=== PATIENT | female | born 1980 | race Caucasian/White ===

== ENCOUNTER 2016-06-03 20:05 | Emergency (ER) | payer BC, OTHER ==
--- NOTE | 2016-06-03 20:19 | ERPHSYRPT ---
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 no current fevers and has been clean for years now per pt. Timing/Duration: today Activities at Onset: none Quality: fullness, pressure, tightness Location: substernal Chest Pain Radiation: no radiation Severity of Pain-Max: moderate Severity of Pain-Current: moderate Modifying Factors: Improves With: nothing Associated Symptoms: shortness of breath Prior Chest Pain/Cardiac Workup: heart attack Nitro Today/Relief: 0.4 mg x 2, provided by EMS, mild relief Aspirin Treatment Today: 81 mg x 4, provided by EMS Allergies/Adverse Reactions: ibuprofen Allergy (Verified 06/03/16 20:24) paroxetine HCl [From Paxil] Allergy (Verified 06/03/16 20:24) Penicillins Allergy (Verified 06/03/16 20:24) Home Medications: No Home Meds 1 ea UD 06/03/16 [History] Hx Tetanus, Diphtheria Vaccination/Date Given: No (PT UNSURE) Hx Influenza Vaccination/Date Given: Yes (2013) Hx Pneumococcal Vaccination/Date Given: Yes (2010) - Review of Systems Constitutional: No Fever, No Chills Eyes: No Symptoms Ears, Nose, & Throat: No Symptoms Respiratory: Dyspnea, No Cough Cardiac: Chest Pain, No Edema, No Syncope Abdominal/Gastrointestinal: No Abdominal Pain, No Nausea, No Vomiting, No Diarrhea Genitourinary Symptoms: No Dysuria Musculoskeletal: No Back Pain, No Neck Pain Skin: No Rash Neurological: No Dizziness, No Focal Weakness, No Sensory Changes Psychological: No Symptoms Endocrine: No Symptoms All Other Systems: Reviewed and Negative - Past Medical History Pertinent Past Medical History: Yes Neurological History: Seizures ENT History: No Pertinent History Cardiac History: Hypertension, Myocardial Infarction ([place]), Other Endocrine Medical History: No Pertinent History Musculoskeletal History: Fibromyalgia, Rheumatoid Arthritis GI Medical History: No Pertinent History History: Renal Disease, Other Psycho-Social History: Depression, Other Female Reproductive Disorders: No Pertinent History Other Medical History: 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 LEFT LOWER LOBECTOMY - Past Surgical History Past Surgical History: Yes Neuro Surgical History: No Pertinent History Cardiac: No Pertinent History Respiratory: No Pertinent History Genitourinary: Other Female Surgical History: Hysterectomy, Tubal Ligation Other Surgical History: D&C. LEFT LOWER LOBECTOMY. TRI CUPSID VALVE REPLACED - Social History Smoking Status: Former smoker How long have you smoked: 15 Exposure to second hand smoke: Yes Drug Use: none Patient Lives Alone: No - Female History Hx Now: No - Nursing Vital Signs Temperature: 98.0 F Temperature Source: Oral Pulse Rate: 98 Respiratory Rate: 16 Blood Pressure: 120/66 Pain Intensity: 6 - Physical Exam General Appearance: mild distress, alert Eye Exam: PERRL/EOMI, eyes nml inspection Ears, Nose, Throat Exam: normal ENT inspection, moist mucous membranes Neck Exam: normal inspection, non-tender, supple, full range of motion Respiratory Exam: normal breath sounds, lungs clear, airway intact, No respiratory distress Cardiovascular Exam: regular rate/rhythm, normal heart sounds Gastrointestinal/Abdomen Exam: soft, No tenderness, No mass Pelvic Exam: deferred Rectal Exam: deferred Back Exam: normal inspection, No CVA tenderness, No vertebral tenderness Extremity Exam: normal inspection, normal range of motion Neurologic Exam: alert, oriented x 3, cooperative, normal mood/affect, sensation nml, No motor deficits Skin Exam: normal color, warm, dry SpO2: 96 Oxygen Delivery: Room Air - Course Nursing assessment & vital signs reviewed: Yes EKG Interpreted by Me: Sinus Rhythm, NORMAL AXIS, Non-specific ST Changes, Other (poor r wave progression) - Radiology Exams Chest X-ray Interpretation: Reviewed by me, No Pneumothorax, Other (bilateral lower interstitial findings) Ordered Tests: Active Orders 24 hr Category Date Time Status Curb Attendant STAT Care 06/03/16 20:19 Active EKG-ER Only STAT Care 06/03/16 20:19 Active IV Insertion STAT Care 06/03/16 20:19 Active Pulse Oximetry (ED) STAT Care 06/03/16 20:19 Active CHEST 1 VIEW (PORTABLE) Stat Exams 06/03/16 20:20 Taken AMYLASE Stat Lab 06/03/16 20:40 Completed CBC W DIFF Stat Lab 06/03/16 20:40 Completed CK-Creatinine Phosphokinase Stat Lab 06/03/16 20:40 Completed CMP Stat Lab 06/03/16 20:40 Completed D-DIMER QUANTITATION Stat Lab 06/03/16 20:40 Completed HCG QUALITATIVE,SERUM Stat Lab 06/03/16 20:40 Completed LIPASE Stat Lab 06/03/16 20:40 Completed Lactic Acid Urgent Lab 06/03/16 20:40 Completed NT PRO BNP Stat Lab 06/03/16 20:40 Completed TROPONIN Q3H Lab 06/03/16 20:40 Completed TROPONIN Q3H Lab 06/03/16 23:30 Ordered TROPONIN Q3H Lab 06/04/16 02:30 Ordered TROPONIN Q3H Lab 06/04/16 05:30 Ordered TROPONIN Q3H Lab 06/04/16 08:30 Ordered UA Stat Lab 06/03/16 20:20 Ordered Urine Triage Profile Stat Lab 06/03/16 20:20 Ordered Medication Summary Generic Name Dose Route Start Last Admin Trade Name [place] PRN Reason Stop Dose Admin Acetaminophen 650 mg 06/03/16 20:32 Tylenol 325 Mg PO 07/03/16 20:31 Q4H PRN PRN PAIN AND/OR FEVER Sodium Chloride 1,000 mls @ 100 mls/hr 06/03/16 20:30 06/03/16 20:41 Sodium Chloride 0.9% 1000 Ml IV 07/03/16 20:29 100 mls/hr .Q10H HAYES Administration Nitroglycerin/Dextrose 250 mls @ 3 mls/hr 06/03/16 20:32 06/03/16 20:41 Ntg 0.2mg/Ml In D5w Glass IV 07/03/16 20:31 3 mls/hr .Q24H PRN Administration CHEST PAIN Protocol 10 MCG/MIN Discontinued Medications Generic Name Dose Route Start Last Admin Trade Name Freq PRN Reason Stop Dose Admin Acetaminophen 500 mg 06/03/16 20:29 06/03/16 20:46 Tylenol Extra Strength 500 Mg PO 06/03/16 20:30 500 mg STAT STA Administration Acetaminophen Confirm 06/03/16 20:46 Tylenol Extra Strength 500 Mg Administered 06/03/16 20:47 Dose 500 mg .ROUTE .STK-MED ONE Acetaminophen 500 mg 06/03/16 21:19 06/03/16 21:27 Tylenol Extra Strength 500 Mg PO 06/03/16 21:20 500 mg STAT STA Administration Acetaminophen Confirm 06/03/16 21:23 Tylenol Extra Strength 500 Mg Administered 06/03/16 21:24 Dose 500 mg .ROUTE .STK-MED ONE Diphenhydramine HCl 25 mg 06/03/16 20:22 06/03/16 20:41 Benadryl 50 Mg/Ml IV 06/03/16 20:23 25 mg STAT ONE Administration Diphenhydramine HCl Confirm 06/03/16 20:32 Benadryl 50 Mg/Ml Administered 06/03/16 20:33 Dose 50 mg .ROUTE .STK-MED ONE Sodium Chloride Confirm 06/03/16 20:33 Sodium Chloride 0.9% 1000 Ml Administered 06/03/16 20:34 Dose 1,000 mls @ ud .ROUTE .STK-MED ONE Nitroglycerin/Dextrose Confirm 06/03/16 20:33 Ntg 0.2mg/Ml In D5w Glass Administered 06/03/16 20:34 Dose 250 mls @ ud IV .STK-MED ONE Lorazepam 1 mg 06/03/16 20:22 06/03/16 20:41 Ativan 2 Mg/1 Ml Vial IV 06/03/16 20:23 1 mg STAT ONE Administration Lorazepam Confirm 06/03/16 20:33 Ativan 2 Mg/1 Ml Vial Administered 06/03/16 20:34 Dose 2 mg .ROUTE .STK-MED ONE Promethazine HCl 50 mg 06/03/16 21:19 06/03/16 21:27 Phenergan 25 Mg Inj IM 06/03/16 21:20 50 mg STAT ONE Administration Promethazine HCl Confirm 06/03/16 21:23 Phenergan 25 Mg Inj Administered 06/03/16 21:24 Dose 50 mg .ROUTE .STK-MED ONE Tramadol HCl 50 mg 06/03/16 21:19 06/03/16 21:27 Ultram 50 Mg PO 06/03/16 21:20 50 mg STAT ONE Administration Tramadol HCl Confirm 06/03/16 21:23 Ultram 50 Mg Administered 06/03/16 21:24 Dose 50 mg .ROUTE .STK-MED ONE Lab/Rad Data: Laboratory Result Diagrams 06/03/16 20:40 06/03/16 20:40 Laboratory Results 06/03/16 06/03/16 06/03/16 Range/Units 20:40 20:40 20:40 WBC (4.0-10.5) K/mm3 RBC (4.1-5.4) M/mm3 Hgb (12.0-16.0) gm/dl Hct (35-47) % MCV (78-100) fl MCH (26-32) pg MCHC (32-36) g/dl RDW (11.5-14.0) % Plt Count (150-450) K/mm3 MPV (6-9.5) fl Gran % (36.0-66.0) % Lymphocytes % (24.0-44.0) % Monocytes % (0.0-12.0) % Eosinophils % (0.00-5.0) % Basophils % (0.0-0.4) % Basophils # (0-0.4) D-Dimer (0.00-0.49) mg/L Sodium (136-145) mEq/L Potassium (3.5-5.1) mEq/L Chloride (98-107) mEq/L Carbon Dioxide (21-32) mEq/L Anion Gap (5-15) MEQ/L BUN (9-20) mg/dL Creatinine (0.55-1.30) mg/dl Estimated GFR ML/MIN Glucose (70-110) MG/DL Lactic Acid 1.3 (0.4-2.0) Calcium (8.5-10.1) mg/dL Total Bilirubin (0.2-1.0) mg/dL AST (15-37) U/L ALT (12-78) U/L Alkaline Phosphatase (46-116) U/L Creatine Kinase (26-192) U/L Troponin I < 0.017 (0.000-0.056) ng/ml NT-Pro-B Natriuret Pep (0-125) pg/ml Serum Total Protein (6.4-8.2) gm/dL Albumin (3.4-5.0) g/dL Amylase (25-115) U/L Lipase (73-393) U/L Serum , Qual NEGATIVE (Negative) 06/03/16 06/03/16 06/03/16 Range/Units 20:40 20:40 20:40 WBC 10.9 H (4.0-10.5) K/mm3 RBC 5.06 (4.1-5.4) M/mm3 Hgb 15.1 (12.0-16.0) gm/dl Hct 46.4 (35-47) % MCV 91.7 (78-100) fl MCH 29.8 (26-32) pg MCHC 32.5 (32-36) g/dl RDW 14.0 (11.5-14.0) % Plt Count 230 (150-450) K/mm3 MPV 9.8 H (6-9.5) fl Gran % 65.8 (36.0-66.0) % Lymphocytes % 23.9 L (24.0-44.0) % Monocytes % 8.3 (0.0-12.0) % Eosinophils % 1.6 (0.00-5.0) % Basophils % 0.4 (0.0-0.4) % Basophils # 0.04 (0-0.4) D-Dimer < 0.20 (0.00-0.49) mg/L Sodium 143 (136-145) mEq/L Potassium 4.3 (3.5-5.1) mEq/L Chloride 109 H (98-107) mEq/L Carbon Dioxide 21.2 (21-32) mEq/L Anion Gap 17.5 H (5-15) MEQ/L BUN 18 (9-20) mg/dL Creatinine 1.12 (0.55-1.30) mg/dl Estimated GFR 59 ML/MIN Glucose 127 H (70-110) MG/DL Lactic Acid (0.4-2.0) Calcium 8.3 L (8.5-10.1) mg/dL Total Bilirubin 0.6 (0.2-1.0) mg/dL AST 15 (15-37) U/L ALT 39 (12-78) U/L Alkaline Phosphatase 179 H (46-116) U/L Creatine Kinase 123 (26-192) U/L Troponin I (0.000-0.056) ng/ml NT-Pro-B Natriuret Pep 683 H (0-125) pg/ml Serum Total Protein 6.4 (6.4-8.2) gm/dL Albumin 3.4 (3.4-5.0) g/dL Amylase 52 (25-115) U/L Lipase 134 (73-393) U/L Serum , Qual (Negative) - Progress Progress: improved Air Movement: good Progress Note: 06/03/16 21:50 discussed with [address] and dr quezada at [facility] and bet to transfer to [facility] for cardio workup and treatmetn, and all agree. Blood Culture(s) Obtained: No Antibiotics given: No Discussed with Dr.: Other (Dr. Quezada manager civil at [facility]) Will see patient in: hospital (full admit) Counseled pt/family regarding: lab results, diagnosis, need for follow-up, rad results - Departure Time of Disposition: 21:51 Departure Disposition: Transfer Clinical Impression: Chest pain, SP AVR Condition: Good Critical Care Time: No
[2016-06-03] MEDS ORDERED: Ativan 2 MG/1 ML VIAL IV ONE (20:22)
[2016-06-03] MEDS ORDERED: BENADRYL 50 MG/ML IV ONE (20:22)
[2016-06-03] MEDS ORDERED: TYLENOL EXTRA STRENGTH 500 MG PO STA ×2 (20:29→21:19)
[2016-06-03] MEDS ORDERED: Sodium Chloride 0.9% 1000 ML 1,000 ML IV SCH (20:30)
[2016-06-03] MEDS ORDERED: Ntg 0.2MG/Ml in D5W GLASS*** 250 ML IV PRN (20:32)
[2016-06-03] MEDS ORDERED: BENADRYL 50 MG/ML ONE (20:32)
[2016-06-03] MEDS ORDERED: TYLENOL 325 MG PO PRN (20:32)
[2016-06-03] MEDS ORDERED: Sodium Chloride 0.9% 1000 ML 1,000 ML ONE (20:33)
[2016-06-03] MEDS ORDERED: Ntg 0.2MG/Ml in D5W GLASS*** 250 ML IV ONE (20:33)
[2016-06-03] MEDS ORDERED: Ativan 2 MG/1 ML VIAL ONE (20:33)
[2016-06-03 20:44] LABS: BASOPHIL % 0.4 % (0.0-0.4); Eosinophil % 1.6 % (0.00-5.0); Granulocytes % 65.8 % (36.0-66.0); Lymphocytes % 23.9 % (24.0-44.0); Mean Cell Volume 91.7 fl (78-100); Mean Corpuscular Hemoglobin 29.8 pg (26-32); Mean Platelet Volume 9.8 fl (6-9.5); Monocytes % 8.3 % (0.0-12.0); Platelet Count 230 K/mm3 (150-450); Red Blood Count 5.06 M/mm3 (4.1-5.4); White Blood Count 10.9 K/mm3 (4.0-10.5)
[2016-06-03] MEDS ORDERED: TYLENOL EXTRA STRENGTH 500 MG ONE ×2 (20:46→21:23)
[2016-06-03 21:11] LABS: ALBUMIN 3.4 g/dL (3.4-5.0); ANION GAP 17.5 MEQ/L (5-15); BILIRUBIN,TOTAL 0.6 mg/dL (0.2-1.0); Carbon Dioxide 21.2 mEq/L (21-32); Potassium 4.3 mEq/L (3.5-5.1); Total Protein 6.4 gm/dL (6.4-8.2)
[2016-06-03] MEDS ORDERED: Phenergan 25 MG INJ IM ONE (21:19)
[2016-06-03] MEDS ORDERED: ULTRAM 50 MG PO ONE (21:19)
[2016-06-03] MEDS ORDERED: ULTRAM 50 MG ONE (21:23)
[2016-06-03] MEDS ORDERED: Phenergan 25 MG INJ ONE (21:23)
[2016-06-03 21:30] VITALS: O2SAT 96
[2016-06-03 22:31] VITALS: BP 95/63; PULSE 96
--- NOTE | 2016-06-04 09:25 | XRAY ---
Indication: Chest pain. Comparison: January 09, 2015 Portable chest again demonstrates previous cardiothoracic surgery. Heart is not enlarged. Vascularity normal. Lungs inflated without focal infiltrate, consolidation, or large effusion. Bony thorax intact with old left seventh rib fracture. Impression: Nonacute chest.
== END 2016-06-03 22:37 | disposition short-term general hospital (02) ==
LOC: EEVIPCON 20:05 → ED 20:05
DX: R07.89 Other chest pain (principal); Z95.4 Presence of other heart-valve replacement; Z79.82 Long term (current) use of aspirin; I10 Essential (primary) hypertension; I25.2 Old myocardial infarction; Z87.891 Personal history of nicotine dependence
CPT/HCPCS: 36000; 36415; 71010; 80053; 82150; 82550; 83605; 83690; 83880; 84484; 84703; 85025; 85379; 93005; 93041; 96360; 96361; 96365; 96366; 96372; 96374; 96375; 99285; J1200; J2060; J2550

== ENCOUNTER 2016-12-01 13:42 | Observation (INO) | payer MEDICAID, OTHER ==
[2016-12-01] MEDS ORDERED: MORPHINE SULFATE 4 MG INJ IV ONE ×2 (14:05→15:27)
--- NOTE | 2016-12-01 14:11 | ERPHSYRPT ---
- History of Present Illness Time Seen by Provider: 12/01/16 14:06 Historian: patient Exam Limitations: no limitations Patient Subjective Stated Complaint: Pt states she was relaxing and her vision started getting blurry and "bouncy". She felt really clammy and then started having chest pain under the left breast radiating into the back and the left shoulder. Pt states she feels nauseous, sob, and dizzy. Has hx of triple valve replacement and left lobectomy. Triage Nursing Assessment: Pt alert and oriented x3. skin pink warm and dry. afebrile. heart tones RRR. scar noted to chest Physician History: 36 y/o female with history of triple bypass and left lobectomy sent from [facility] for acute onset left sided chest pain and blurry vision. Pt was sitting down when these symptoms started. Pt initially had sharp chest pain, constant, currently 8/10 after receiving NTG X 3 and ASA and with radiation to left arm and back. Pt denies any dizziness, palpitations, abdominal pain, nausea or vomiting. Timing/Duration: today Activities at Onset: none Quality: sharpness Location: substernal, shoulder, back Chest Pain Radiation: neck, arm, back Severity of Pain-Max: severe Severity of Pain-Current: severe Modifying Factors: Improves With: nothing Associated Symptoms: other (blurry vision) Prior Chest Pain/Cardiac Workup: no prior cardiac workup Nitro Today/Relief: 0.4 mg x 3, provided by EMS Aspirin Treatment Today: 81 mg x 1 Allergies/Adverse Reactions: paroxetine HCl [From Paxil] Allergy (Verified 12/01/16 13:55) Penicillins Allergy (Verified 12/01/16 13:55) ibuprofen Adverse Reaction (Verified 12/01/16 13:55) Home Medications: Aspirin 81 mg PO QAM 12/01/16 [History] Nitroglycerin 0.4 mg Tablet [Nitrostat 0.4 MG Tablet] 0.4 mg SL UD [History] Hx Tetanus, Diphtheria Vaccination/Date Given: No (2013) Hx Influenza Vaccination/Date Given: No (2013) Hx Pneumococcal Vaccination/Date Given: Yes (2013) - Review of Systems Constitutional: No Fever, No Chills Eyes: Vision Changes Ears, Nose, & Throat: No Symptoms Respiratory: No Cough, No Dyspnea Cardiac: Chest Pain, No Edema, No Palpitations, No Syncope Abdominal/Gastrointestinal: No Abdominal Pain, No Nausea, No Vomiting, No Diarrhea Genitourinary Symptoms: No Dysuria Musculoskeletal: No Back Pain, No Neck Pain Skin: No Rash Neurological: No Dizziness, No Focal Weakness, No Sensory Changes Psychological: No Symptoms Endocrine: No Symptoms All Other Systems: Reviewed and Negative - Past Medical History Pertinent Past Medical History: Yes Neurological History: Seizures ENT History: No Pertinent History Cardiac History: Hypertension, Myocardial Infarction ([place]), Other Endocrine Medical History: No Pertinent History Musculoskeletal History: Fibromyalgia, Rheumatoid Arthritis GI Medical History: No Pertinent History History: Renal Disease, Other Psycho-Social History: Depression, Other Female Reproductive Disorders: No Pertinent History Other Medical History: 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 LEFT LOWER LOBECTOMY. triple valve replacement - Social History Smoking Status: Current every day smoker How long have you smoked: 15 Exposure to second hand smoke: Yes Drug Use: marijuana, other Patient Lives Alone: No - Female History Hx Last Menstrual Period: 2013 Hx Now: No - Nursing Vital Signs Nursing Vital Signs: Initial Vital Signs Temperature 98.2 F Temperature Source Oral Pulse Rate [Apical] 94 Pulse Rate 92 Respiratory Rate 18 Blood Pressure [Right Arm] 143/102 Blood Pressure [Left Arm] 167/121 Pain Intensity 7 - Physical Exam General Appearance: mild distress, alert, anxiety Eye Exam: PERRL/EOMI, eyes nml inspection Ears, Nose, Throat Exam: normal ENT inspection, moist mucous membranes Neck Exam: normal inspection, non-tender, supple, full range of motion Respiratory Exam: normal breath sounds, lungs clear, No respiratory distress Cardiovascular Exam: regular rate/rhythm, normal heart sounds, normal peripheral pulses Gastrointestinal/Abdomen Exam: soft, No tenderness, No mass Back Exam: normal inspection, No CVA tenderness, No vertebral tenderness Extremity Exam: normal inspection, normal range of motion Neurologic Exam: alert, oriented x 3, cooperative, normal mood/affect, sensation nml, No motor deficits Skin Exam: normal color, warm, dry SpO2 Interpretation: normal SpO2: 94 Oxygen Delivery: Room Air - Course Nursing assessment & vital signs reviewed: Yes EKG Interpreted by Me: RATE, NORMAL AXIS, NORMAL INTERVALS, NORMAL QRS Ordered Tests: Active Orders 24 hr Category Date Time Status IV Insertion STAT Care 12/01/16 14:05 Active CHEST 2 VIEWS (PA AND LAT) Stat Exams 12/01/16 14:04 Completed CBCD [CBC W DIFF] Stat Lab 12/01/16 13:52 Completed CK-Creatinine Phosphokinase Stat Lab 12/01/16 13:52 Completed CMP Stat Lab 12/01/16 13:52 Completed D-DIMER QUANTITATION Stat Lab 12/01/16 13:52 Completed PT INR [PROTIME WITH INR] Stat Lab 12/01/16 13:52 Completed PTT Stat Lab 12/01/16 13:52 Completed TROPONIN Stat Lab 12/01/16 13:52 Completed Medication Summary Discontinued Medications Generic Name Dose Route Start Last Admin Trade Name Freq PRN Reason Stop Dose Admin Morphine Sulfate 4 mg 12/01/16 14:05 12/01/16 14:17 Morphine Sulfate 4 Mg Inj IV 12/01/16 14:06 4 mg STAT ONE Administration Morphine Sulfate Confirm 12/01/16 14:15 Morphine Sulfate 4 Mg Inj Administered 12/01/16 14:16 Dose 4 mg .ROUTE .STK-MED ONE Morphine Sulfate 4 mg 12/01/16 15:27 12/01/16 15:34 Morphine Sulfate 4 Mg Inj IV 12/01/16 15:28 4 mg STAT ONE Administration Morphine Sulfate Confirm 12/01/16 15:33 Morphine Sulfate 4 Mg Inj Administered 12/01/16 15:34 Dose 4 mg .ROUTE .STK-MED ONE Morphine Sulfate Confirm 12/01/16 15:35 Morphine Sulfate 4 Mg Inj Administered 12/01/16 15:36 Dose 4 mg .ROUTE .STK-MED ONE Lab/Rad Data: Laboratory Result Diagrams 12/01/16 13:52 12/01/16 13:52 Laboratory Results 12/01/16 12/01/16 12/01/16 Range/Units 13:52 13:52 13:52 WBC 8.8 (4.0-10.5) K/mm3 RBC 5.50 H (4.1-5.4) M/mm3 Hgb 16.4 H (12.0-16.0) gm/dl Hct 48.5 H (35-47) % MCV 88.2 (78-100) fl MCH 29.8 (26-32) pg MCHC 33.8 (32-36) g/dl RDW 13.9 (11.5-14.0) % Plt Count 284 (150-450) K/mm3 MPV 10.7 H (6-9.5) fl Gran % 68.2 H (36.0-66.0) % Lymphocytes % 21.9 L (24.0-44.0) % Monocytes % 7.0 (0.0-12.0) % Eosinophils % 2.7 (0.00-5.0) % Basophils % 0.2 (0.0-0.4) % Basophils # 0.02 (0-0.4) INR 1.10 (0.8-3.0) APTT 34.9 (25.3-37.0) SECONDS D-Dimer < 200 (0-500) ng/mL Sodium 140 (136-145) mEq/L Potassium 4.0 (3.5-5.1) mEq/L Chloride 104 (98-107) mEq/L Carbon Dioxide 21.5 (21-32) mEq/L Anion Gap 18.0 H (5-15) MEQ/L BUN 10 (9-20) mg/dL Creatinine 1.00 (0.55-1.30) mg/dl Estimated GFR > 60 ML/MIN Glucose 110 (70-110) MG/DL Calcium 9.2 (8.5-10.1) mg/dL Total Bilirubin 0.80 (0.2-1.0) mg/dL AST 26 (15-37) U/L ALT 33 (12-78) U/L Alkaline Phosphatase 173 H (46-116) U/L Creatine Kinase 96 (26-192) U/L Troponin I < 0.017 (0.000-0.056) ng/ml Serum Total Protein 8.0 (6.4-8.2) gm/dL Albumin 4.2 (3.4-5.0) g/dL - Progress Progress: improved Air Movement: good Progress Note: 12/01/16 15:46 Pt has relief of pain after receiving morphine 4mg IV X 1 dose. The EKG and troponin are negative. The CXR does not show any acute findings. Since patient has a significant cardiac history with a pressure like sensation in the center of chest, patient will need to be admitted to trend cardiac enzymes. Pt has been admitted to Dr Reynoso for chest pain. - Departure Time of Disposition: 15:47 Departure Disposition: In-patient Admission Clinical Impression: Chest pain Qualifiers: Chest pain type: unspecified Qualified Code(s): R07.9 - Chest pain, unspecified Condition: Stable Critical Care Time: No
[2016-12-01] MEDS ORDERED: MORPHINE SULFATE 4 MG INJ ONE ×3 (14:15→15:35)
--- NOTE | 2016-12-01 14:24 | XRAY ---
Indication: Left-sided chest pain. Comparison: June 03, 2016. PA/lateral chest again demonstrates normal heart, lungs, and bony thorax with incidental sternotomy wires and old left seventh rib fracture.
[2016-12-01 14:27] LABS: BASOPHIL % 0.2 % (0.0-0.4); Eosinophil % 2.7 % (0.00-5.0); Granulocytes % 68.2 % (36.0-66.0); Lymphocytes % 21.9 % (24.0-44.0); Mean Cell Volume 88.2 fl (78-100); Mean Corpuscular Hemoglobin 29.8 pg (26-32); Mean Platelet Volume 10.7 fl (6-9.5); Platelet Count 284 K/mm3 (150-450); Red Cell Distribution Width 13.9 % (11.5-14.0); White Blood Count 8.8 K/mm3 (4.0-10.5)
[2016-12-01 14:47] LABS: PROTIME 12.4 SECONDS (9.95-12.35)
[2016-12-01 14:49] LABS: PTT 34.9 SECONDS (25.3-37.0)
[2016-12-01 14:54] LABS: ALBUMIN 4.2 g/dL (3.4-5.0); ALKALINE PHOSPHATASE 173 U/L (46-116); BLOOD UREA NITROGEN 10 mg/dL (9-20); CHLORIDE 104 mEq/L (98-107); Carbon Dioxide 21.5 mEq/L (21-32); Glucose 110 MG/DL (70-110); SGOT/AST 26 U/L (15-37); SGPT/ALT 33 U/L (12-78); SODIUM 140 mEq/L (136-145)
[2016-12-01 14:55] LABS: TROPONIN < 0.017 ng/ml (0.000-0.056)
[2016-12-01] MEDS ORDERED: MAALOX ES 30 ML UNIT DOSE PO PRN (15:48)
[2016-12-01] MEDS ORDERED: MILK OF MAGNESIA 30 ML PO PRN (15:48)
[2016-12-01] MEDS ORDERED: Senokot-S Tablet PO PRN (15:48)
[2016-12-01] MEDS: Zofran 4 MG/2 ML VIAL IV PRN ×2 (18:16→22:43)
[2016-12-01] MEDS: TYLENOL 325 MG PO PRN ×2 (18:25→23:32)
[2016-12-01] MEDS ORDERED: LOPRESSOR 5 MG/5 ML INJECTION IV ONE (18:43)
[2016-12-01] MEDS: MORPHINE SULFATE 2 MG INJ IV PRN ×2 (19:00→19:54)
[2016-12-01] MEDS ORDERED: Nitrostat 0.4 MG Tablet SL PRN (19:06)
[2016-12-02] MEDS: MORPHINE SULFATE 2 MG INJ IV PRN ×2 (00:54→07:47)
[2016-12-02 02:51] LABS: Bilirubin NEGATIVE (NEGATIVE); Blood 250 Ery/ul (0-5); Collection Type CLEAN CATCH; Glucose NEGATIVE (NEGATIVE); Leukocyte Esterase 2+ (NEGATIVE)
[2016-12-02 02:52] LABS: ADD URINE CULTURE? YES (NO); Bacteria MANY /HPF (NEGATIVE); COMPLETE URINE MICROSCOPIC? YES; Epithelial Cells MODERATE /HPF (FEW); Mucus MODERATE /HPF (NEGATIVE); WBC 25-50 /HPF (0-5)
[2016-12-02] MEDS ORDERED: MORPHINE SULFATE 10 MG/ML IV PRN (06:50)
[2016-12-02 08:23] VITALS: O2SAT 98
[2016-12-02] MEDS ORDERED: Ecotrin 325 MG PO SCH (10:00)
[2016-12-02] MEDS ORDERED: NON-FORMULARY ITEM (Aspirin [Aspirin] 81 MG) PO SCH (10:00)
[2016-12-02] MEDS ORDERED: ECOTRIN 81 MG PO SCH (10:00)
[2016-12-02 13:14] VITALS: BP 124/81; PULSE 65
--- NOTE | 2016-12-02 16:19 | XRAY ---
Indication: Headache and pressure behind left eye. Multiple contiguous axial images obtained through the head without contrast. Comparison: November 08, 2011. Again normal appearing brain parenchyma, ventricles, and bony calvarium. Mild mucosal thickening of the visualized left maxillary sinus. Remaining visualized paranasal sinuses and mastoid air cells are pneumatized and clear. Impression: Stable normal CT head without contrast exam. Incidental left maxillary sinus disease. CTDI 71.08
[2016-12-03] MEDS ORDERED: Ecotrin 325 MG PO SCH (10:00)
--- NOTE | 2016-12-05 15:36 | SSS ---
DISCHARGE DIAGNOSIS: 1. CHEST PAIN - RESOLVED. 2. HEADACHE. 3. HISTORY OF SUBSTANCE ABUSE. 4. HISTORY OF BACTERIAL ENDOCARDITIS. 5. HISTORY OF SWEETS SYNDROME. HOSPITAL COURSE: Mrs. 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 Reportedly, she was relaxing and she started having headache and blurring of vision. [place] clammy and started developing chest pain in left-sided chest wall. She states the pain did radiate to her back and left shoulder and lasted a few minutes. Pain was associated with nausea, shortness of breath, and some dizziness. Pain lasted several minutes. In the ambulance, she received nitroglycerin X 2, aspirin 81 X 1, and was subsequently brought to Emergency Room where she had reported persistent chest pain. Initial vitals in Emergency Room were BP 167/121, heart rate 94, respiratory rate 18, temperature 98.2. After initial work-up, she was treated with morphine 4 mg IV X 3. Subsequently, she was admitted for further monitoring and management. Since admission, her chest pain has improved. Earlier today, she had complained of some headache. At the time of this evaluation, she is alert, awake, and comfortable. States her chest pain has nearly resolved. Denies increased shortness of breath. Complains of headache. States her blurred vision is chronic off and on. PAST MEDICAL HISTORY: As noted above. Patient also has history of fibromyalgia, rheumatoid arthritis, hypertension, myocardial infarction, and seizures. 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 CURRENT MEDICATIONS: Aspirin 81 daily and nitroglycerin 0.4 PRN. ALLERGIES: PAROXETINE, PENICILLIN, IBUPROFEN. FAMILY HISTORY: Noncontributory. SOCIAL HISTORY: Patient is an active smoker. Has smoked for 15 years. Denies alcohol abuse. History of substance abuse - marijuana (currently, she is incarcerated due to that) PAST SURGICAL HISTORY: 1. Tubal ligation, 2. Hysterectomy, 3. Left lower lobectomy, 4. 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 REVIEW OF SYSTEMS: Complains of headache. No dizziness. Occasional blurred vision. History of chest pain that has nearly resolved. Denies increased shortness of breath. Denies cough. Denies fever. Denies fatigue. Has abdominal pain, nausea, and vomiting. Denies constipation or diarrhea. Denies urinary complaints. PHYSICAL EXAMINATION: Young woman lying comfortably in bed. Not in acute distress. VITAL SIGNS: BP 124/89, heart rate 64, respiratory rate 18, temperature 98.2, O2 saturation 98% on 2 liters. HEENT: Normocephalic. No pallor or icterus noted. NECK: No JVD present. CVS: S1 and S2 present. RESPIRATORY: Breath sounds diminished. ABDOMEN: Soft, nontender. NEURO: She is alert and oriented X 3. Motor strength in bilateral upper and lower extremities reveals grossly intact motor strength. EXTREMITIES: Reveals no edema on bilateral lower extremities. LABORATORY DATA: Labs on admission showed unremarkable CBC. D-dimer was less than 200. CMP as notable for Alk. phos. of 173. Troponin has been less than 0.017 X 3. Lipid profile showed LDL 100. UA showed 25-50 RBC, 25-50 WBC, moderate epithelial cells, many bacteria, positive nitrite, positive blood. Urine tox is positive for opiates, benzodiazepines, and THC. Initial EKG showed sinus rhythm at 94 beats/minute and no acute ST-T changes. A follow-up EKG showed sinus bradycardia at 53 beats/minute, nonspecific ST-T changes in anterior leads. Another follow-up EKG showed sinus bradycardia at 58 beats/minute and nonspecific ST-T changes in anterior leads. Chest x-ray showed sternotomy wires and old left 7th rib fracture. Medications were reviewed. ASSESSMENT: OUTLINED IN DISCHARGE DIAGNOSIS. PLAN: 1. Patient was admitted with chest pain. Initial cardiac work-up has remained essentially unremarkable. Patient remains hemodynamically stable. Her symptoms of chest pain have nearly resolved. She overall seems well with continued PRN nitroglycerin. Will continue aspirin. Patient will be scheduled as an outpatient for echo, stress test, and cardiology appointment. 2. Will obtain CT head. 3. Will ambulate patient and likely discharge today. 4. Complete cessation of smoking, alcohol intake (if any), and substance abuse was stressed with patient. I have advised patient to return to the Emergency Room [facility] if any new signs and symptoms or reappearance of previous signs and symptoms are noted. The patient's clinical condition, work-up results, and plan of management were discussed with her. She seems to be in understanding and agreement. Discussed with patient's nurse, Selin.
== END 2016-12-02 14:15 ==
LOC: ED 13:42 → ICU 16:29 → UNDOADMOB 16:29 → UNDODISOB 12-02 14:15
PROVIDERS: ADMIT General Practice; ATTEND General Practice
DX: R07.9 Chest pain, unspecified (principal); R51 Headache; F19.21 Other psychoactive substance dependence, in remission; L98.2 Febrile neutrophilic dermatosis [Sweet]; M79.7 Fibromyalgia; M06.9 Rheumatoid arthritis, unspecified; I10 Essential (primary) hypertension; I25.2 Old myocardial infarction; G40.909 Epilepsy, unspecified, not intractable, without status epilepticus
CPT/HCPCS: 36000; 36415; 70450; 71020; 80053; 80061; 80307; 81000; 82550; 83721; 84484; 85025; 85379; 85610; 85730; 87077; 87086; 87186; 93005; 93268; 96374; 96376; 99284; 99285; G0378; J2270; J2405; A9270-GY

== ENCOUNTER 2016-12-10 21:48 | Emergency (ER) | payer OTHER ==
[2016-12-10] MEDS ORDERED: BABY ASPIRIN 81 MG CHEW PO ONE (21:54)
[2016-12-10] MEDS ORDERED: Nitrostat 0.4 MG (ED) SL ONE ×2 (21:54→22:44)
--- NOTE | 2016-12-10 21:58 | ERPHSYRPT ---
- History of Present Illness Time Seen by Provider: 12/10/16 21:49 Historian: patient Exam Limitations: no limitations Physician History: FOR THE PAST 40 MINUTES PT HAS HAD NAUSEA, DIAPHORESIS, SHORTNESS OF AIR AND CONSTANT SHARP LEFT ANTERIOR CHEST PAIN WITH RADIATION TO THE NECK, BACK AND LEFT ARM. Aspirin Treatment Today: 81 mg x 4, provided by ED Allergies/Adverse Reactions: paroxetine HCl [From Paxil] Allergy (Verified 12/01/16 13:55) Penicillins Allergy (Verified 12/01/16 13:55) ibuprofen Adverse Reaction (Verified 12/01/16 13:55) Home Medications: Aspirin 81 mg PO QAM 12/01/16 [History] Nitroglycerin 0.4 mg Tablet [Nitrostat 0.4 MG Tablet] 0.4 mg SL UD [History] Hx Tetanus, Diphtheria Vaccination/Date Given: No (2013) Hx Influenza Vaccination/Date Given: No (2013) Hx Pneumococcal Vaccination/Date Given: Yes (2013) - Review of Systems Respiratory: Dyspnea Cardiac: Chest Pain Abdominal/Gastrointestinal: Nausea Musculoskeletal: Back Pain, Neck Pain, Other (LEFT ARM PAIN) Endocrine: Excessive Sweating All Other Systems: Reviewed and Negative - Past Medical History Pertinent Past Medical History: Yes Neurological History: Seizures ENT History: No Pertinent History Cardiac History: Hypertension, Myocardial Infarction (PA), Other Respiratory History: No Pertinent History Endocrine Medical History: No Pertinent History Musculoskeletal History: Fibromyalgia, Rheumatoid Arthritis GI Medical History: No Pertinent History History: Renal Disease, Other Psycho-Social History: Depression, Other Female Reproductive Disorders: No Pertinent History Other Medical History: 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 LEFT LOWER LOBECTOMY. triple valve replacement - Social History Smoking Status: Current every day smoker How long have you smoked: 15 Exposure to second hand smoke: No Drug Use: marijuana, other Patient Lives Alone: No - Female History Hx Now: No - Nursing Vital Signs Nursing Vital Signs: Initial Vital Signs Temperature 97.6 F 12/10/16 21:49 Pulse Rate 100 H 12/10/16 21:49 Respiratory Rate 24 12/10/16 21:49 Blood Pressure 148/97 12/10/16 21:49 O2 Sat by Pulse Oximetry 92 L 12/10/16 21:49 Pain Scale Pain Intensity 5 - Physical Exam General Appearance: alert, anxiety Eye Exam: PERRL/EOMI Ears, Nose, Throat Exam: pharynx normal, moist mucous membranes Neck Exam: normal inspection Respiratory Exam: lungs clear Cardiovascular Exam: normal heart sounds Gastrointestinal/Abdomen Exam: soft, normal bowel sounds Back Exam: normal range of motion Extremity Exam: No pedal edema Neurologic Exam: alert, cooperative Skin Exam: warm, dry - Course Nursing assessment & vital signs reviewed: Yes EKG Interpreted by Me: RATE ([id number]), Sinus Tach, NORMAL AXIS, NORMAL INTERVALS - Radiology Exams Chest X-ray Interpretation: Interpreted by me, No Pneumonia Ordered Tests: Active Orders 24 hr Category Date Time Status Continuous Miner Operator STAT Care 12/10/16 21:54 Active Clean Catch Urine Specimen STAT Care 12/10/16 23:43 Active EKG-ER Only STAT Care 12/10/16 21:54 Active IV Insertion STAT Care 12/10/16 21:54 Active Oxygen-ED Only NASAL CANNULA 2 lpm Care 12/10/16 21:54 Active Pulse Oximetry (ED) STAT Care 12/10/16 21:54 Active CHEST 2 VIEWS (PA AND LAT) Stat Exams 12/10/16 21:54 Taken AMYLASE Stat Lab 12/10/16 22:15 Completed CBC W DIFF Stat Lab 12/10/16 22:15 Completed CMP Stat Lab 12/10/16 22:15 Completed CULTURE,URINE Stat Lab 12/10/16 22:55 Received HCG QUALITATIVE,SERUM Stat Lab 12/10/16 22:15 Completed LIPASE Stat Lab 12/10/16 22:15 Completed MAGNESIUM Stat Lab 12/10/16 22:15 Completed NT PRO BNP Stat Lab 12/10/16 22:15 Completed PROTIME WITH INR Stat Lab 12/10/16 22:15 Completed PTT Stat Lab 12/10/16 22:15 Completed TROPONIN Q3H Lab 12/10/16 22:15 Completed TROPONIN Q3H Lab 12/11/16 00:45 Completed TROPONIN Q3H Lab 12/11/16 04:00 Ordered TROPONIN Q3H Lab 12/11/16 07:00 Ordered TROPONIN Q3H Lab 12/11/16 10:00 Ordered UA W/ MICROSCOPIC Stat Lab 12/10/16 22:55 Completed Urine Triage Profile Stat Lab 12/10/16 22:55 Completed Medication Summary Generic Name Dose Route Start Last Admin Trade Name [place] PRN Reason Stop Dose Admin Sodium Chloride 1,000 mls @ 100 mls/hr 12/10/16 22:00 12/10/16 22:28 Sodium Chloride 0.9% 1000 Ml IV 01/09/17 21:59 100 mls/hr .Q10H HAYES Administration Discontinued Medications Generic Name Dose Route Start Last Admin Trade Name [place] PRN Reason Stop Dose Admin Aspirin 324 mg 12/10/16 21:54 12/10/16 22:09 Baby Aspirin 81 Mg Chew PO 12/10/16 21:55 324 mg STAT ONE Administration Aspirin Confirm 12/10/16 22:44 Baby Aspirin 81 Mg Chew Administered 12/10/16 22:45 Dose 324 mg .ROUTE .STK-MED ONE Ceftriaxone Sodium/Dextrose 1 g in 50 mls @ 100 mls/hr 12/10/16 23:25 23:41 Rocephin 1 Gm-D5w 50 Ml Bag IV 12/10/16 23:54 100 mls/hr STAT STA Administration Sodium Chloride 1,000 mls @ 999 mls/hr 12/10/16 23:25 12/11/16 00:20 Sodium Chloride 0.9% 1000 Ml IV 12/11/16 00:25 999 mls/hr .Q1H1M STA Administration Ceftriaxone Sodium/Dextrose Confirm 12/10/16 23:39 Rocephin 1 Gm-D5w 50 Ml Bag Administered 12/10/16 23:40 Dose 1 g in 50 mls @ ud IV .STK-MED ONE Nitroglycerin 0.4 mg 12/10/16 21:54 12/10/16 22:10 Nitrostat 0.4 Mg (Ed) SL 12/10/16 21:55 0.4 mg STAT ONE Administration Nitroglycerin Confirm 12/10/16 22:44 Nitrostat 0.4 Mg (Ed) Administered 12/10/16 22:45 Dose 0.4 mg SL .STK-MED ONE Lab/Rad Data: Laboratory Result Diagrams 12/10/16 22:15 12/10/16 22:15 Laboratory Results 12/11/16 12/10/16 12/10/16 Range/Units 00:45 22:55 22:55 WBC (4.0-10.5) K/mm3 RBC (4.1-5.4) M/mm3 Hgb (12.0-16.0) gm/dl Hct (35-47) % MCV (78-100) fl MCH (26-32) pg MCHC (32-36) g/dl RDW (11.5-14.0) % Plt Count (150-450) K/mm3 MPV (6-9.5) fl Gran % (36.0-66.0) % Lymphocytes % (24.0-44.0) % Monocytes % (0.0-12.0) % Eosinophils % (0.00-5.0) % Basophils % (0.0-0.4) % Basophils # (0-0.4) INR (0.8-3.0) APTT (25.3-37.0) SECONDS Sodium (136-145) mEq/L Potassium (3.5-5.1) mEq/L Chloride (98-107) mEq/L Carbon Dioxide (21-32) mEq/L Anion Gap (5-15) MEQ/L BUN (9-20) mg/dL Creatinine (0.55-1.30) mg/dl Estimated GFR ML/MIN Glucose (70-110) MG/DL Calcium (8.5-10.1) mg/dL Magnesium (1.8-2.4) mg/dL Total Bilirubin (0.2-1.0) mg/dL AST (15-37) U/L ALT (12-78) U/L Alkaline Phosphatase (46-116) U/L Troponin I < 0.017 (0.000-0.056) ng/ml NT-Pro-B Natriuret Pep (0-125) pg/ml Serum Total Protein (6.4-8.2) gm/dL Albumin (3.4-5.0) g/dL Amylase (25-115) U/L Lipase (73-393) U/L Serum , Qual (Negative) Ur Collection Type CLEAN CATCH Urine Color YELLOW (YELLOW) Urine Appearance CLEAR (CLEAR) Urine pH 6.0 (5-6) Ur Specific [place] 1.015 (1.005-1.025) Urine Protein NEGATIVE (Negative) Urine Ketones NEGATIVE (NEGATIVE) Urine Blood TRACE NON-HEM (0-5) [place]/ul Urine Nitrite NEGATIVE (NEGATIVE) Urine Bilirubin NEGATIVE (NEGATIVE) Urine Urobilinogen NORMAL (0-1) mg/dL Ur Leukocyte Esterase 2+ (NEGATIVE) Urine Microscopic RBC 0-2 (0-2) /HPF Urine Microscopic WBC 5-10 (0-5) /HPF Ur Epithelial Cells FEW (FEW) /HPF Urine Bacteria FEW (NEGATIVE) /HPF Urine Glucose NEGATIVE (NEGATIVE) mg/dL Urine Opiates Level NEG. (NEGATIVE) Ur Methadone NEG. (NEGATIVE) Urine Barbiturates NEG. (NEGATIVE) Ur Phencyclidine (PCP) NEG. (NEGATIVE) Urine Amphetamine NEG. (NEGATIVE) U Benzodiazepine Level NEG. (NEGATIVE) Urine Cocaine NEG. (NEGATIVE) Urine Marijuana (THC) NEG. (NEGATIVE) Specimen Received 12/10/16 [id number] 12/10/16 12/10/16 12/10/16 Range/Units 22:15 22:15 22:15 WBC (4.0-10.5) K/mm3 RBC (4.1-5.4) M/mm3 Hgb (12.0-16.0) gm/dl Hct (35-47) % MCV (78-100) fl MCH (26-32) pg MCHC (32-36) g/dl RDW (11.5-14.0) % Plt Count (150-450) K/mm3 MPV (6-9.5) fl Gran % (36.0-66.0) % Lymphocytes % (24.0-44.0) % Monocytes % (0.0-12.0) % Eosinophils % (0.00-5.0) % Basophils % (0.0-0.4) % Basophils # (0-0.4) INR 1.12 (0.8-3.0) APTT 33.1 (25.3-37.0) SECONDS Sodium (136-145) mEq/L Potassium (3.5-5.1) mEq/L Chloride (98-107) mEq/L Carbon Dioxide (21-32) mEq/L Anion Gap (5-15) MEQ/L BUN (9-20) mg/dL Creatinine (0.55-1.30) mg/dl Estimated GFR ML/MIN Glucose (70-110) MG/DL Calcium (8.5-10.1) mg/dL Magnesium (1.8-2.4) mg/dL Total Bilirubin (0.2-1.0) mg/dL AST (15-37) U/L ALT (12-78) U/L Alkaline Phosphatase (46-116) U/L Troponin I < 0.017 (0.000-0.056) ng/ml NT-Pro-B Natriuret Pep (0-125) pg/ml Serum Total Protein (6.4-8.2) gm/dL Albumin (3.4-5.0) g/dL Amylase (25-115) U/L Lipase (73-393) U/L Serum , Qual NEGATIVE (Negative) Ur Collection Type Urine Color (YELLOW) Urine Appearance (CLEAR) Urine pH (5-6) Ur Specific [place] (1.005-1.025) Urine Protein (Negative) Urine Ketones (NEGATIVE) Urine Blood (0-5) Margarito/ul Urine Nitrite (NEGATIVE) Urine Bilirubin (NEGATIVE) Urine Urobilinogen (0-1) mg/dL Ur Leukocyte Esterase (NEGATIVE) Urine Microscopic RBC (0-2) /HPF Urine Microscopic WBC (0-5) /HPF Ur Epithelial Cells (FEW) /HPF Urine Bacteria (NEGATIVE) /HPF Urine Glucose (NEGATIVE) mg/dL Urine Opiates Level (NEGATIVE) Ur Methadone (NEGATIVE) Urine Barbiturates (NEGATIVE) Ur Phencyclidine (PCP) (NEGATIVE) Urine Amphetamine (NEGATIVE) U Benzodiazepine Level (NEGATIVE) Urine Cocaine (NEGATIVE) Urine Marijuana (THC) (NEGATIVE) Specimen Received 12/10/16 12/10/16 Range/Units 22:15 22:15 WBC 8.1 (4.0-10.5) K/mm3 RBC 4.91 (4.1-5.4) M/mm3 Hgb 14.6 (12.0-16.0) gm/dl Hct 43.3 (35-47) % MCV 88.2 (78-100) fl MCH 29.7 (26-32) pg MCHC 33.7 (32-36) g/dl RDW 14.1 H (11.5-14.0) % Plt Count 217 (150-450) K/mm3 MPV 9.9 H (6-9.5) fl Gran % 61.0 (36.0-66.0) % Lymphocytes % 28.2 (24.0-44.0) % Monocytes % 7.7 (0.0-12.0) % Eosinophils % 2.6 (0.00-5.0) % Basophils % 0.5 (0.0-0.4) % Basophils # 0.04 (0-0.4) INR (0.8-3.0) APTT (25.3-37.0) SECONDS Sodium 138 (136-145) mEq/L Potassium 4.5 (3.5-5.1) mEq/L Chloride 104 (98-107) mEq/L Carbon Dioxide 19.5 L (21-32) mEq/L Anion Gap 19.4 H (5-15) MEQ/L BUN 21 H (9-20) mg/dL Creatinine 1.33 H (0.55-1.30) mg/dl Estimated GFR 49 ML/MIN Glucose 136 H (70-110) MG/DL Calcium 9.2 (8.5-10.1) mg/dL Magnesium 1.8 (1.8-2.4) mg/dL Total Bilirubin 0.50 (0.2-1.0) mg/dL AST 26 (15-37) U/L ALT 43 (12-78) U/L Alkaline Phosphatase 190 H (46-116) U/L Troponin I (0.000-0.056) ng/ml NT-Pro-B Natriuret Pep 505 H (0-125) pg/ml Serum Total Protein 7.4 (6.4-8.2) gm/dL Albumin 4.1 (3.4-5.0) g/dL Amylase 54 (25-115) U/L Lipase 147 (73-393) U/L Serum , Qual (Negative) Ur Collection Type Urine Color (YELLOW) Urine Appearance (CLEAR) Urine pH (5-6) Ur Specific [place] (1.005-1.025) Urine Protein (Negative) Urine Ketones (NEGATIVE) Urine Blood (0-5) Margarito/ul Urine Nitrite (NEGATIVE) Urine Bilirubin (NEGATIVE) Urine Urobilinogen (0-1) mg/dL Ur Leukocyte Esterase (NEGATIVE) Urine Microscopic RBC (0-2) /HPF Urine Microscopic WBC (0-5) /HPF Ur Epithelial Cells (FEW) /HPF Urine Bacteria (NEGATIVE) /HPF Urine Glucose (NEGATIVE) mg/dL Urine Opiates Level (NEGATIVE) Ur Methadone (NEGATIVE) Urine Barbiturates (NEGATIVE) Ur Phencyclidine (PCP) (NEGATIVE) Urine Amphetamine (NEGATIVE) U Benzodiazepine Level (NEGATIVE) Urine Cocaine (NEGATIVE) Urine Marijuana (THC) (NEGATIVE) Specimen Received - Departure Time of Disposition: 01:13 Departure Disposition: Home Clinical Impression: CHEST PAIN, UTI Condition: Stable Critical Care Time: No Instructions: Chest Pain, Urinary Tract Infection (UTI) Additional Instructions: FOLLOW UP WITH PRIVATE DOCTOR TOMORROW. Prescriptions: Nitrofurantoin Macro 100 mg [Macrobid 100MG Capsule] 100 mg PO BID #20 capsule
[2016-12-10] MEDS ORDERED: Sodium Chloride 0.9% 1000 ML 1,000 ML IV SCH (22:00)
[2016-12-10] MEDS ORDERED: Sodium Chloride 0.9% 1000 ML 1,000 ML ONE (22:25)
[2016-12-10 22:27] LABS: BASOPHIL % 0.5 % (0.0-0.4); Eosinophil % 2.6 % (0.00-5.0); Lymphocytes % 28.2 % (24.0-44.0); Mean Cell Volume 88.2 fl (78-100); Mean Corpuscular Hemoglobin 29.7 pg (26-32); Mean Platelet Volume 9.9 fl (6-9.5); Monocytes % 7.7 % (0.0-12.0); Platelet Count 217 K/mm3 (150-450); Red Blood Count 4.91 M/mm3 (4.1-5.4); Red Cell Distribution Width 14.1 % (11.5-14.0); White Blood Count 8.1 K/mm3 (4.0-10.5)
[2016-12-10 22:44] LABS: INR 1.12 (0.8-3.0); PROTIME 12.7 SECONDS (9.95-12.35)
[2016-12-10] MEDS ORDERED: BABY ASPIRIN 81 MG CHEW ONE (22:44)
[2016-12-10 22:47] LABS: PTT 33.1 SECONDS (25.3-37.0)
[2016-12-10 22:59] LABS: ALBUMIN 4.1 g/dL (3.4-5.0); ANION GAP 19.4 MEQ/L (5-15); BILIRUBIN,TOTAL 0.5 mg/dL (0.2-1.0); Carbon Dioxide 19.5 mEq/L (21-32); MAGNESIUM 1.8 mg/dL (1.8-2.4); Potassium 4.5 mEq/L (3.5-5.1); Total Protein 7.4 gm/dL (6.4-8.2)
[2016-12-10 23:23] LABS: ADD URINE CULTURE? YES (NO); Bacteria FEW /HPF (NEGATIVE); Bilirubin NEGATIVE (NEGATIVE); Blood TRACE NON-HEM Ery/ul (0-5); COMPLETE URINE MICROSCOPIC? YES; Collection Type CLEAN CATCH; Epithelial Cells FEW /HPF (FEW); Glucose NEGATIVE (NEGATIVE); Leukocyte Esterase 2+ (NEGATIVE)
[2016-12-10] MEDS ORDERED: Sodium Chloride 0.9% 1000 ML 1,000 ML IV STA (23:25)
[2016-12-10] MEDS ORDERED: ROCEPHIN 1 Gm-D5w 50 ml Bag** 1 G/50 ML IVPB IV STA (23:25)
[2016-12-10] MEDS ORDERED: ROCEPHIN 1 Gm-D5w 50 ml Bag** 1 G/50 ML IVPB IV ONE (23:39)
[2016-12-11 01:24] VITALS: BP 122/91; PULSE 80; O2SAT 96
--- NOTE | 2016-12-11 08:37 | XRAY ---
Indication: Chest pain. Comparison: December 01, 2016. PA/lateral chest again demonstrates normal heart, lungs, and bony thorax with incidental sternotomy wires and old left seventh rib fracture.
== END 2016-12-11 01:24 | disposition home or self-care (01) ==
LOC: ED 21:48
DX: R07.89 Other chest pain (principal); N39.0 Urinary tract infection, site not specified; R11.0 Nausea; R61 Generalized hyperhidrosis; R06.02 Shortness of breath; I25.2 Old myocardial infarction
CPT/HCPCS: 36000; 36415; 71020; 80053; 80307; 81000; 82150; 83690; 83735; 83880; 84484; 84703; 85025; 85610; 85730; 87077; 87086; 87186; 93005; 93041; 96360; 96361; 96365; 99284; J0696; A9270-GY

== ENCOUNTER 2016-12-21 23:32 | Emergency (ER) | payer OTHER ==
[2016-12-22] MEDS ORDERED: Nitrostat 0.4 MG (ED) SL ONE ×2 (00:08→00:17)
[2016-12-22] MEDS ORDERED: BABY ASPIRIN 81 MG CHEW PO ONE (00:08)
--- NOTE | 2016-12-22 00:11 | ERPHSYRPT ---
- History of Present Illness Time Seen by Provider: 12/22/16 00:04 Source: patient Exam Limitations: no limitations Physician History: ABOUT 4 HOURS AGO PT WAS IN THE SHOWER, BENT DOWN AND STARTED WITH DIZZINESS AND EPISTAXIS. PT THEN DEVELOPED NAUSEA, CHILLS, HEADACHE, SHORTNESS OF AIR, RIGHT SHOULDER PAIN, NECK PAIN AND RIGHT UPPER CHEST PAIN. Allergies/Adverse Reactions: paroxetine HCl [From Paxil] Allergy (Verified 12/22/16 00:11) Penicillins Allergy (Verified 12/22/16 00:11) ibuprofen Adverse Reaction (Verified 12/22/16 00:11) Hx Tetanus, Diphtheria Vaccination/Date Given: No (2013) Hx Influenza Vaccination/Date Given: No (2013) Hx Pneumococcal Vaccination/Date Given: Yes (2013) - Review of Systems Constitutional: Chills Ears, Nose, & Throat: Epistaxis Respiratory: Dyspnea Cardiac: Chest Pain Abdominal/Gastrointestinal: Nausea Musculoskeletal: Neck Pain, Joint Pain (RIGHT SHOULDER PAIN) Neurological: Dizziness, Headache All Other Systems: Reviewed and Negative - Past Medical History Pertinent Past Medical History: Yes Neurological History: Seizures ENT History: No Pertinent History Cardiac History: Hypertension, Myocardial Infarction (MT), Other Respiratory History: No Pertinent History Endocrine Medical History: No Pertinent History Musculoskeletal History: Fibromyalgia, Rheumatoid Arthritis GI Medical History: No Pertinent History History: Renal Disease, Other Psycho-Social History: Depression, Other Female Reproductive Disorders: No Pertinent History Other Medical History: 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 LEFT LOWER LOBECTOMY. triple valve replacement - Social History Smoking Status: Current every day smoker How long have you smoked: 15 Exposure to second hand smoke: No Drug Use: marijuana, other Patient Lives Alone: No - Female History Hx Now: No - Nursing Vital Signs Nursing Vital Signs: Initial Vital Signs Temperature 97.2 F 12/21/16 23:33 Pulse Rate 93 H 12/21/16 23:33 Respiratory Rate 22 12/21/16 23:33 Blood Pressure 125/104 12/21/16 23:33 O2 Sat by Pulse Oximetry 95 12/21/16 23:33 Pain Scale Pain Intensity 6 - Physical Exam General Appearance: alert Eye Exam: PERRL/EOMI Ears, Nose, Throat Exam: pharynx normal, moist mucous membranes, other (DRIED BLOOD IN BOTH NARRES; NO ACTIVE BLEEDING.) Neck Exam: normal inspection Respiratory Exam: lungs clear Cardiovascular Exam: normal heart sounds Gastrointestinal/Abdomen Exam: soft, normal bowel sounds Back Exam: normal range of motion Extremity Exam: No pedal edema Neurologic Exam: alert, cooperative Skin Exam: warm, dry - Course Nursing assessment & vital signs reviewed: Yes EKG Interpreted by Me: RATE (89), Sinus Rhythm, NORMAL AXIS, NORMAL INTERVALS - Radiology Exams Chest X-ray Interpretation: Interpreted by me, No Pneumonia Ordered Tests: Active Orders 24 hr Category Date Time Status Foreign Exchange Trader STAT Care 12/22/16 00:08 Active EKG-ER Only STAT Care 12/22/16 00:08 Active IV Insertion STAT Care 12/22/16 00:08 Active CHEST 2 VIEWS (PA AND LAT) Stat Exams 12/22/16 00:09 Taken AMYLASE Stat Lab 12/22/16 00:15 Completed CBC W DIFF Stat Lab 12/22/16 00:15 Completed CMP Stat Lab 12/22/16 00:15 Completed CULTURE,URINE Stat Lab 12/22/16 01:16 Received CULTURE,URINE Stat Lab 12/22/16 01:40 Ordered HCG QUALITATIVE,SERUM Stat Lab 12/22/16 00:15 Completed LIPASE Stat Lab 12/22/16 00:15 Completed MAGNESIUM Stat Lab 12/22/16 00:15 Completed NT PRO BNP Stat Lab 12/22/16 00:15 Completed PROTIME WITH INR Stat Lab 12/22/16 00:15 Completed PTT Stat Lab 12/22/16 00:15 Completed TROPONIN Q3H Lab 12/22/16 00:15 Completed TROPONIN Q3H Lab 12/22/16 03:15 Ordered TROPONIN Q3H Lab 12/22/16 06:15 Ordered TROPONIN Q3H Lab 12/22/16 09:15 Ordered TROPONIN Q3H Lab 12/22/16 12:15 Ordered UA W/ MICROSCOPIC Stat Lab 12/22/16 01:16 Completed Medication Summary Generic Name Dose Route Start Last Admin Trade Name Freq PRN Reason Stop Dose Admin Sodium Chloride 1,000 mls @ 100 mls/hr 12/22/16 00:15 12/22/16 00:19 Sodium Chloride 0.9% 1000 Ml IV 01/21/17 00:14 100 mls/hr .Q10H HAYES Administration Ceftriaxone Sodium/Dextrose 1 g in 50 mls @ 100 mls/hr 12/22/16 01:40 Rocephin 1 Gm-D5w 50 Ml Bag IV 12/22/16 02:09 STAT STA Discontinued Medications Generic Name Dose Route Start Last Admin Trade Name [place] PRN Reason Stop Dose Admin Aspirin 324 mg 12/22/16 00:08 12/22/16 00:19 Baby Aspirin 81 Mg Chew PO 12/22/16 00:09 324 mg STAT ONE Administration Aspirin Confirm 12/22/16 00:17 Baby Aspirin 81 Mg Chew Administered 12/22/16 00:18 Dose 324 mg .ROUTE .STK-MED ONE Nitroglycerin 0.4 mg 12/22/16 00:08 12/22/16 00:20 Nitrostat 0.4 Mg (Ed) SL 12/22/16 00:09 0.4 mg STAT ONE Administration Nitroglycerin Confirm 12/22/16 00:17 Nitrostat 0.4 Mg (Ed) Administered 12/22/16 00:18 Dose 0.4 mg SL .STK-MED ONE Lab/Rad Data: Laboratory Result Diagrams 12/22/16 00:15 12/22/16 00:15 Laboratory Results 12/22/16 12/22/16 12/22/16 Range/Units 01:16 00:15 00:15 WBC (4.0-10.5) K/mm3 RBC (4.1-5.4) M/mm3 Hgb (12.0-16.0) gm/dl Hct (35-47) % MCV (78-100) fl MCH (26-32) pg MCHC (32-36) g/dl RDW (11.5-14.0) % Plt Count (150-450) K/mm3 MPV (6-9.5) fl Gran % (36.0-66.0) % Lymphocytes % (24.0-44.0) % Monocytes % (0.0-12.0) % Eosinophils % (0.00-5.0) % Basophils % (0.0-0.4) % Basophils # (0-0.4) INR (0.8-3.0) APTT (25.3-37.0) SECONDS Sodium (136-145) mEq/L Potassium (3.5-5.1) mEq/L Chloride (98-107) mEq/L Carbon Dioxide (21-32) mEq/L Anion Gap (5-15) MEQ/L BUN (9-20) mg/dL Creatinine (0.55-1.30) mg/dl Estimated GFR ML/MIN Glucose (70-110) MG/DL Calcium (8.5-10.1) mg/dL Magnesium (1.8-2.4) mg/dL Total Bilirubin (0.2-1.0) mg/dL AST (15-37) U/L ALT (12-78) U/L Alkaline Phosphatase (46-116) U/L Troponin I < 0.017 (0.000-0.056) ng/ml NT-Pro-B Natriuret Pep (0-125) pg/ml Serum Total Protein (6.4-8.2) gm/dL Albumin (3.4-5.0) g/dL Amylase (25-115) U/L Lipase (73-393) U/L Serum , Qual NEGATIVE (Negative) Ur Collection Type CLEAN CATCH Urine Color YELLOW (YELLOW) Urine Appearance SLIGHTLY CLOUDY (CLEAR) Urine pH 5.0 (5-6) Ur Specific [place] 1.020 (1.005-1.025) Urine Protein TRACE (Negative) Urine Ketones NEGATIVE (NEGATIVE) Urine Blood 250 (0-5) Margarito/ul Urine Nitrite NEGATIVE (NEGATIVE) Urine Bilirubin NEGATIVE (NEGATIVE) Urine Urobilinogen NORMAL (0-1) mg/dL Ur Leukocyte Esterase 2+ (NEGATIVE) Urine Microscopic RBC 15-25 (0-2) /HPF Urine Microscopic WBC 50-100 (0-5) /HPF Ur Epithelial Cells MODERATE (FEW) /HPF Urine Bacteria MODERATE (NEGATIVE) /HPF Urine Mucus SLIGHT (NEGATIVE) /HPF Urine Glucose NEGATIVE (NEGATIVE) mg/dL Specimen Received 12/22/16 0120 12/22/16 12/22/16 12/22/16 Range/Units 00:15 00:15 00:15 WBC 9.3 (4.0-10.5) K/mm3 RBC 4.82 (4.1-5.4) M/mm3 Hgb 14.4 (12.0-16.0) gm/dl Hct 43.3 (35-47) % MCV 89.8 (78-100) fl MCH 29.9 (26-32) pg MCHC 33.3 (32-36) g/dl RDW 14.4 H (11.5-14.0) % Plt Count 205 (150-450) K/mm3 MPV 10.2 H (6-9.5) fl Gran % 59.6 (36.0-66.0) % Lymphocytes % 29.1 (24.0-44.0) % Monocytes % 9.0 (0.0-12.0) % Eosinophils % 2.1 (0.00-5.0) % Basophils % 0.2 (0.0-0.4) % Basophils # 0.02 (0-0.4) INR 1.10 (0.8-3.0) APTT 29.1 (25.3-37.0) SECONDS Sodium 142 (136-145) mEq/L Potassium 4.0 (3.5-5.1) mEq/L Chloride 108 H (98-107) mEq/L Carbon Dioxide 22.4 (21-32) mEq/L Anion Gap 15.8 H (5-15) MEQ/L BUN 20 (9-20) mg/dL Creatinine 1.11 (0.55-1.30) mg/dl Estimated GFR 60 ML/MIN Glucose 105 (70-110) MG/DL Calcium 9.0 (8.5-10.1) mg/dL Magnesium 1.8 (1.8-2.4) mg/dL Total Bilirubin 0.50 (0.2-1.0) mg/dL AST 24 (15-37) U/L ALT 43 (12-78) U/L Alkaline Phosphatase 170 H (46-116) U/L Troponin I (0.000-0.056) ng/ml NT-Pro-B Natriuret Pep 513 H (0-125) pg/ml Serum Total Protein 7.6 (6.4-8.2) gm/dL Albumin 4.1 (3.4-5.0) g/dL Amylase 44 (25-115) U/L Lipase 102 (73-393) U/L Serum , Qual (Negative) Ur Collection Type Urine Color (YELLOW) Urine Appearance (CLEAR) Urine pH (5-6) Ur Specific [place] (1.005-1.025) Urine Protein (Negative) Urine Ketones (NEGATIVE) Urine Blood (0-5) Margarito/ul Urine Nitrite (NEGATIVE) Urine Bilirubin (NEGATIVE) Urine Urobilinogen (0-1) mg/dL Ur Leukocyte Esterase (NEGATIVE) Urine Microscopic RBC (0-2) /HPF Urine Microscopic WBC (0-5) /HPF Ur Epithelial Cells (FEW) /HPF Urine Bacteria (NEGATIVE) /HPF Urine Mucus (NEGATIVE) /HPF Urine Glucose (NEGATIVE) mg/dL Specimen Received - Departure Time of Disposition: 01:45 Departure Disposition: [facility] Clinical Impression: CHEST PAIN, EPISTAXIS, UTI Condition: Stable Critical Care Time: No Referrals: MIRANDA ETIENNE [Primary Care Provider] - Instructions: Nosebleed, Chest Pain, Urinary Tract Infection (UTI) Additional Instructions: FOLLOW UP WITH PRIVATE DOCTOR TOMORROW. Prescriptions: Nitrofurantoin Macro 100 mg [Macrobid 100MG Capsule] 100 mg PO BID #20 capsule
[2016-12-22] MEDS ORDERED: Sodium Chloride 0.9% 1000 ML 1,000 ML IV SCH (00:15)
[2016-12-22] MEDS ORDERED: BABY ASPIRIN 81 MG CHEW ONE (00:17)
[2016-12-22] MEDS ORDERED: Sodium Chloride 0.9% 1000 ML 1,000 ML ONE (00:18)
[2016-12-22 00:26] LABS: BASOPHIL % 0.2 % (0.0-0.4); Eosinophil % 2.1 % (0.00-5.0); Granulocytes % 59.6 % (36.0-66.0); Lymphocytes % 29.1 % (24.0-44.0); Mean Cell Volume 89.8 fl (78-100); Mean Corpuscular Hemoglobin 29.9 pg (26-32); Mean Platelet Volume 10.2 fl (6-9.5); Platelet Count 205 K/mm3 (150-450); Red Blood Count 4.82 M/mm3 (4.1-5.4); Red Cell Distribution Width 14.4 % (11.5-14.0); White Blood Count 9.3 K/mm3 (4.0-10.5)
[2016-12-22 00:45] LABS: INR 1.1 (0.8-3.0); PROTIME 12.4 SECONDS (9.95-12.35)
[2016-12-22 00:48] LABS: PTT 29.1 SECONDS (25.3-37.0)
[2016-12-22 00:50] LABS: ALBUMIN 4.1 g/dL (3.4-5.0); ANION GAP 15.8 MEQ/L (5-15); BILIRUBIN,TOTAL 0.5 mg/dL (0.2-1.0); Carbon Dioxide 22.4 mEq/L (21-32); MAGNESIUM 1.8 mg/dL (1.8-2.4); Total Protein 7.6 gm/dL (6.4-8.2)
[2016-12-22 01:01] VITALS: O2SAT 95
[2016-12-22 01:38] LABS: ADD URINE CULTURE? YES (NO); Bacteria MODERATE /HPF (NEGATIVE); Bilirubin NEGATIVE (NEGATIVE); Blood 250 Ery/ul (0-5); COMPLETE URINE MICROSCOPIC? YES; Collection Type CLEAN CATCH; Epithelial Cells MODERATE /HPF (FEW); Glucose NEGATIVE (NEGATIVE); Leukocyte Esterase 2+ (NEGATIVE); Mucus SLIGHT /HPF (NEGATIVE); WBC 50-100 /HPF (0-5)
[2016-12-22] MEDS ORDERED: ROCEPHIN 1 Gm-D5w 50 ml Bag** 1 G/50 ML IVPB IV STA (01:40)
[2016-12-22] MEDS ORDERED: ROCEPHIN 1 Gm-D5w 50 ml Bag** 1 G/50 ML IVPB IV ONE (01:42)
[2016-12-22] MEDS ORDERED: TYLENOL 325 MG ONE (01:49)
[2016-12-22] MEDS ORDERED: TYLENOL 325 MG PO ONE (01:49)
[2016-12-22 02:24] VITALS: BP 125/80; PULSE 70
--- NOTE | 2016-12-22 09:31 | XRAY ---
Indication: Chest pain. Comparison: December 10, 2016. AP/lateral chest again demonstrates normal heart, lungs, and bony thorax with sternotomy mild wires.
== END 2016-12-22 02:24 | disposition home or self-care (01) ==
LOC: ED 23:32
DX: R07.89 Other chest pain (principal); R04.0 Epistaxis; N39.0 Urinary tract infection, site not specified; R42 Dizziness and giddiness; M54.2 Cervicalgia; M25.511 Pain in right shoulder; R51 Headache; R06.02 Shortness of breath
CPT/HCPCS: 36000; 36415; 71020; 80053; 81000; 82150; 83690; 83735; 83880; 84484; 84703; 85025; 85610; 85730; 87086; 93005; 93041; 96360; 96361; 96365; 99284; J0696; A9270-GY

== ENCOUNTER 2016-12-31 17:24 | Emergency (ER) | payer OTHER ==
--- NOTE | 2016-12-31 17:51 | ERPHSYRPT ---
- History of Present Illness Time Seen by Provider: 12/31/16 17:30 Historian: patient Exam Limitations: no limitations Physician History: Patient is a 36-year-old female [facility] of a sudden onset of left-sided chest pain while she was eating. She was mildly nauseated. She denies sweating. She states she was also mildly short of breath. She was seen for the same problem on December 21. She took 2 nitroglycerin without relief. She now has a headache. 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 This led to 3 valve cardiac replacement in 2013. She also had loss of distal part of her third toe on the right foot. Timing/Duration: today Activities at Onset: none Quality: aching, pressure Location: substernal Chest Pain Radiation: no radiation Severity of Pain-Max: moderate Severity of Pain-Current: moderate Modifying Factors: Improves With: nitroglycerin Associated Symptoms: nausea, shortness of breath Prior Chest Pain/Cardiac Workup: recently seen/treated Nitro Today/Relief: 0.4 mg x 2, no relief Aspirin Treatment Today: 325 mg x 1, provided by ED Allergies/Adverse Reactions: paroxetine HCl [From Paxil] Allergy (Verified 12/22/16 00:11) Penicillins Allergy (Verified 12/22/16 00:11) ibuprofen Adverse Reaction (Verified 12/22/16 00:11) Hx Tetanus, Diphtheria Vaccination/Date Given: No (2013) Hx Influenza Vaccination/Date Given: No (2013) Hx Pneumococcal Vaccination/Date Given: Yes (2013) - Review of Systems Constitutional: No Fever, No Chills Eyes: No Symptoms Ears, Nose, & Throat: No Symptoms Respiratory: Dyspnea Cardiac: Chest Pain Abdominal/Gastrointestinal: Nausea, No Abdominal Pain, No Vomiting, No Diarrhea Genitourinary Symptoms: No Dysuria Musculoskeletal: No Back Pain, No Neck Pain Skin: No Rash Neurological: No Dizziness, No Focal Weakness, No Sensory Changes Psychological: No Symptoms Endocrine: No Symptoms Hematologic/Lymphatic: No Symptoms Immunological/Allergic: No Symptoms All Other Systems: Reviewed and Negative - Past Medical History Pertinent Past Medical History: Yes Neurological History: Seizures ENT History: No Pertinent History Cardiac History: Hypertension, Myocardial Infarction ([place]), Other Respiratory History: No Pertinent History Endocrine Medical History: No Pertinent History Musculoskeletal History: Fibromyalgia, Rheumatoid Arthritis GI Medical History: No Pertinent History History: Renal Disease, Other Psycho-Social History: Depression, Other Female Reproductive Disorders: No Pertinent History Other Medical History: 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 LEFT LOWER LOBECTOMY. triple valve replacement - Social History Smoking Status: Current every day smoker How long have you smoked: 15 Exposure to second hand smoke: No Drug Use: marijuana, other Patient Lives Alone: No - Female History Hx Now: No - Nursing Vital Signs Nursing Vital Signs: Initial Vital Signs Temperature 97.6 F 12/31/16 17:25 Pulse Rate 97 H 12/31/16 17:25 Respiratory Rate 18 12/31/16 17:25 Blood Pressure 147/102 12/31/16 17:25 O2 Sat by Pulse Oximetry 96 12/31/16 17:25 Pain Scale Pain Intensity 7 - Physical Exam General Appearance: no apparent distress, alert Eye Exam: PERRL/EOMI, eyes nml inspection Ears, Nose, Throat Exam: normal ENT inspection, moist mucous membranes Neck Exam: normal inspection, non-tender, supple, full range of motion Respiratory Exam: chest tenderness (Palpation of the left sternal area of the anterior chest reproduces the pain the patient has been complaining about. Palpation of the right sternal area is unremarkable.) Cardiovascular Exam: regular rate/rhythm, normal heart sounds Gastrointestinal/Abdomen Exam: soft, No tenderness, No mass Pelvic Exam: not done Rectal Exam: not done Back Exam: normal inspection, No CVA tenderness, No vertebral tenderness Extremity Exam: normal inspection, normal range of motion, other (loss of distal portion of right 3rd toe) Neurologic Exam: alert, oriented x 3, cooperative, normal mood/affect, sensation nml, No motor deficits Skin Exam: normal color, warm, dry SpO2 Interpretation: normal - Course EKG Interpreted by Me: RATE, Sinus Rhythm, NORMAL INTERVALS, NORMAL QRS, NORMAL ST-T, Other (No change compared to EKG 12/21/16.) - Radiology Exams Chest X-ray Interpretation: Interpreted by me, Negative Ordered Tests: Active Orders 24 hr Category Date Time Status Information Resources Manager STAT Care 12/31/16 17:52 Active Clean Catch Urine Specimen STAT Care 12/31/16 17:52 Active EKG-ER Only STAT Care 12/31/16 17:52 Active IV Insertion STAT Care 12/31/16 17:52 Active CHEST 2 VIEWS (PA AND LAT) Stat Exams 12/31/16 17:52 Taken CBC W DIFF Stat Lab 12/31/16 18:14 Completed CMP Stat Lab 12/31/16 17:59 Completed NT PRO BNP Stat Lab 12/31/16 17:59 Completed TROPONIN Q3H Lab 12/31/16 17:59 Completed TROPONIN Q3H Lab 12/31/16 21:00 Ordered TROPONIN Q3H Lab 01/01/17 00:00 Ordered TROPONIN Q3H Lab 01/01/17 03:00 Ordered TROPONIN Q3H Lab 01/01/17 06:00 Ordered UA W/ MICROSCOPIC Stat Lab 12/31/16 18:21 Completed Urine Triage Profile Stat Lab 12/31/16 18:21 Completed Medication Summary Discontinued Medications Generic Name Dose Route Start Last Admin Trade Name Justinq PRN Reason Stop Dose Admin Acetaminophen 1,000 mg 12/31/16 18:19 12/31/16 18:20 Tylenol Extra Strength 500 Mg PO 12/31/16 18:20 1,000 mg STAT ONE Administration Acetaminophen Confirm 12/31/16 18:19 Tylenol Extra Strength 500 Mg Administered 12/31/16 18:20 Dose 1,000 mg .ROUTE .STK-MED ONE Al Hydrox/Mg Hydrox/Simethicone Confirm 12/31/16 18:01 Maalox Es 30 Ml Unit Dose Administered 12/31/16 18:02 Dose 30 ml .ROUTE .STK-MED ONE Aspirin 324 mg 12/31/16 17:52 12/31/16 18:05 Baby Aspirin 81 Mg Chew PO 12/31/16 17:53 324 mg STAT ONE Administration Aspirin Confirm 12/31/16 18:00 Baby Aspirin 81 Mg Chew Administered 12/31/16 18:01 Dose 324 mg .ROUTE .STK-MED ONE Belladonna Alkaloids/Phenobarbital 60 ml 12/31/16 17:53 12/31/16 18:05 Gi Cocktail 60ml (Belladonn/Phenobarb/Lidoc* PO 12/31/16 17:54 60 ml STAT ONE Administration Belladonna Alkaloids/Phenobarbital Confirm 12/31/16 18:01 Donnatol Liquid Administered 12/31/16 18:02 Dose 64.8 mg .ROUTE .STK-MED ONE Ketorolac Tromethamine 30 mg 12/31/16 17:53 12/31/16 18:05 Toradol 30 Mg Injection IV 12/31/16 17:54 30 mg STAT ONE Administration Ketorolac Tromethamine Confirm 12/31/16 18:02 Toradol 30 Mg Injection Administered 12/31/16 18:03 Dose 30 mg .ROUTE .STK-MED ONE Lidocaine HCl Confirm 12/31/16 18:00 Xylocaine Hcl Viscous * Administered 12/31/16 18:01 Dose 20 ml .ROUTE .STK-MED ONE Ondansetron HCl 4 mg 12/31/16 17:52 12/31/16 18:05 Zofran 4 Mg/2 Ml Vial IV 12/31/16 17:53 4 mg STAT ONE Administration Ondansetron HCl Confirm 12/31/16 18:02 Zofran 4 Mg/2 Ml Vial Administered 12/31/16 18:03 Dose 4 mg .ROUTE .STK-MED ONE Lab/Rad Data: Laboratory Result Diagrams 12/31/16 18:14 12/31/16 17:59 Laboratory Results 12/31/16 12/31/16 12/31/16 Range/Units 18:21 18:21 18:14 WBC 8.3 (4.0-10.5) K/mm3 RBC 4.59 (4.1-5.4) M/mm3 Hgb 13.7 (12.0-16.0) gm/dl Hct 41.2 (35-47) % MCV 89.8 (78-100) fl MCH 29.8 (26-32) pg MCHC 33.3 (32-36) g/dl RDW 14.4 H (11.5-14.0) % Plt Count 190 (150-450) K/mm3 MPV 10.1 H (6-9.5) fl Gran % 71.8 H (36.0-66.0) % Lymphocytes % 18.7 L (24.0-44.0) % Monocytes % 7.4 (0.0-12.0) % Eosinophils % 1.6 (0.00-5.0) % Basophils % 0.5 (0.0-0.4) % Basophils # 0.04 (0-0.4) Sodium (136-145) mEq/L Potassium (3.5-5.1) mEq/L Chloride (98-107) mEq/L Carbon Dioxide (21-32) mEq/L Anion Gap (5-15) MEQ/L BUN (9-20) mg/dL Creatinine (0.55-1.30) mg/dl Estimated GFR ML/MIN Glucose (70-110) MG/DL Calcium (8.5-10.1) mg/dL Total Bilirubin (0.2-1.0) mg/dL AST (15-37) U/L ALT (12-78) U/L Alkaline Phosphatase (46-116) U/L Troponin I (0.000-0.056) ng/ml NT-Pro-B Natriuret Pep (0-125) pg/ml Serum Total Protein (6.4-8.2) gm/dL Albumin (3.4-5.0) g/dL Ur Collection Type VOID Urine Color YELLOW (YELLOW) Urine Appearance CLEAR (CLEAR) Urine pH 6.0 (5-6) Ur Specific [place] 1.010 (1.005-1.025) Urine Protein NEGATIVE (Negative) Urine Ketones NEGATIVE (NEGATIVE) Urine Blood NEGATIVE (0-5) Margarito/ul Urine Nitrite NEGATIVE (NEGATIVE) Urine Bilirubin NEGATIVE (NEGATIVE) Urine Urobilinogen NORMAL (0-1) mg/dL Ur Leukocyte Esterase 2+ (NEGATIVE) Urine Microscopic RBC 5-10 (0-2) /HPF Urine Microscopic WBC 5-10 (0-5) /HPF Ur Epithelial Cells MODERATE (FEW) /HPF Urine Bacteria FEW (NEGATIVE) /HPF Urine Glucose NEGATIVE (NEGATIVE) mg/dL Urine Opiates Level NEG. (NEGATIVE) Ur Methadone NEG. (NEGATIVE) Urine Barbiturates NEG. (NEGATIVE) Ur Phencyclidine (PCP) NEG. (NEGATIVE) Urine Amphetamine NEG. (NEGATIVE) U Benzodiazepine Level NEG. (NEGATIVE) Urine Cocaine NEG. (NEGATIVE) Urine Marijuana (THC) NEG. (NEGATIVE) Specimen Received 12/31/16 3565 12/31/16 12/31/16 Range/Units 17:59 17:59 WBC (4.0-10.5) K/mm3 RBC (4.1-5.4) M/mm3 Hgb (12.0-16.0) gm/dl Hct (35-47) % MCV (78-100) fl MCH (26-32) pg MCHC (32-36) g/dl RDW (11.5-14.0) % Plt Count (150-450) K/mm3 MPV (6-9.5) fl Gran % (36.0-66.0) % Lymphocytes % (24.0-44.0) % Monocytes % (0.0-12.0) % Eosinophils % (0.00-5.0) % Basophils % (0.0-0.4) % Basophils # (0-0.4) Sodium 141 (136-145) mEq/L Potassium 4.4 (3.5-5.1) mEq/L Chloride 105 (98-107) mEq/L Carbon Dioxide 23.6 (21-32) mEq/L Anion Gap 16.8 H (5-15) MEQ/L BUN 22 H (9-20) mg/dL Creatinine 1.07 (0.55-1.30) mg/dl Estimated GFR > 60 ML/MIN Glucose 109 (70-110) MG/DL Calcium 9.2 (8.5-10.1) mg/dL Total Bilirubin 0.80 (0.2-1.0) mg/dL AST 28 (15-37) U/L ALT 32 (12-78) U/L Alkaline Phosphatase 171 H (46-116) U/L Troponin I < 0.017 (0.000-0.056) ng/ml NT-Pro-B Natriuret Pep 564 H (0-125) pg/ml Serum Total Protein 7.8 (6.4-8.2) gm/dL Albumin 4.3 (3.4-5.0) g/dL Ur Collection Type Urine Color (YELLOW) Urine Appearance (CLEAR) Urine pH (5-6) Ur Specific [place] (1.005-1.025) Urine Protein (Negative) Urine Ketones (NEGATIVE) Urine Blood (0-5) Margarito/ul Urine Nitrite (NEGATIVE) Urine Bilirubin (NEGATIVE) Urine Urobilinogen (0-1) mg/dL Ur Leukocyte Esterase (NEGATIVE) Urine Microscopic RBC (0-2) /HPF Urine Microscopic WBC (0-5) /HPF Ur Epithelial Cells (FEW) /HPF Urine Bacteria (NEGATIVE) /HPF Urine Glucose (NEGATIVE) mg/dL Urine Opiates Level (NEGATIVE) Ur Methadone (NEGATIVE) Urine Barbiturates (NEGATIVE) Ur Phencyclidine (PCP) (NEGATIVE) Urine Amphetamine (NEGATIVE) U Benzodiazepine Level (NEGATIVE) Urine Cocaine (NEGATIVE) Urine Marijuana (THC) (NEGATIVE) Specimen Received - Progress Progress: improved Air Movement: good Progress Note: 12/31/16 18:45 The patient was given Toradol 30 mg IV. The patient was given Tylenol 1000 mg orally and a GI cocktail. The patient is now feeling better. Blood Culture(s) Obtained: No Antibiotics given: No Counseled pt/family regarding: lab results, diagnosis, rad results - Departure Time of Disposition: 18:45 Departure [facility]position: [facility] Clinical Impression: Musculoskeletal chest pain Condition: Good Critical Care Time: No Referrals: MIRANDA ETIENNE [Primary Care Provider] - Additional Instructions: You have musculoskeletal chest pain. You were given Toradol 30 mg by IV and Tylenol 1000 mg and a GI cocktail orally in the ER. Follow-up as needed.
[2016-12-31] MEDS ORDERED: BABY ASPIRIN 81 MG CHEW PO ONE (17:52)
[2016-12-31] MEDS ORDERED: Zofran 4 MG/2 ML VIAL IV ONE (17:52)
[2016-12-31] MEDS ORDERED: GI COCKTAIL 60ML (Belladonn/Phenobarb/Lidoc PO ONE (17:53)
[2016-12-31] MEDS ORDERED: TORAdol 30 mg Injection IV ONE (17:53)
[2016-12-31] MEDS ORDERED: XYLOCAINE HCl Viscous ONE (18:00)
[2016-12-31] MEDS ORDERED: BABY ASPIRIN 81 MG CHEW ONE (18:00)
[2016-12-31] MEDS ORDERED: MAALOX ES 30 ML UNIT DOSE ONE (18:01)
[2016-12-31] MEDS ORDERED: Donnatol Liquid ONE (18:01)
[2016-12-31] MEDS ORDERED: TORAdol 30 mg Injection ONE (18:02)
[2016-12-31] MEDS ORDERED: Zofran 4 MG/2 ML VIAL ONE (18:02)
[2016-12-31 18:17] LABS: BASOPHIL % 0.5 % (0.0-0.4); Eosinophil % 1.6 % (0.00-5.0); Granulocytes % 71.8 % (36.0-66.0); Lymphocytes % 18.7 % (24.0-44.0); Mean Cell Volume 89.8 fl (78-100); Mean Corpuscular Hemoglobin 29.8 pg (26-32); Mean Platelet Volume 10.1 fl (6-9.5); Monocytes % 7.4 % (0.0-12.0); Platelet Count 190 K/mm3 (150-450); Red Blood Count 4.59 M/mm3 (4.1-5.4); Red Cell Distribution Width 14.4 % (11.5-14.0); White Blood Count 8.3 K/mm3 (4.0-10.5)
[2016-12-31 18:19] LABS: ALBUMIN 4.3 g/dL (3.4-5.0); ALKALINE PHOSPHATASE 171 U/L (46-116); ANION GAP 16.8 MEQ/L (5-15); BLOOD UREA NITROGEN 22 mg/dL (9-20); CHLORIDE 105 mEq/L (98-107); Carbon Dioxide 23.6 mEq/L (21-32); Glucose 109 MG/DL (70-110); Potassium 4.4 mEq/L (3.5-5.1); SGOT/AST 28 U/L (15-37); SGPT/ALT 32 U/L (12-78); SODIUM 141 mEq/L (136-145); Total Protein 7.8 gm/dL (6.4-8.2)
[2016-12-31] MEDS ORDERED: TYLENOL EXTRA STRENGTH 500 MG PO ONE (18:19)
[2016-12-31] MEDS ORDERED: TYLENOL EXTRA STRENGTH 500 MG ONE (18:19)
[2016-12-31 18:36] LABS: Bilirubin NEGATIVE (NEGATIVE); Blood NEGATIVE Ery/ul (0-5); Collection Type VOID; Glucose NEGATIVE (NEGATIVE); Leukocyte Esterase 2+ (NEGATIVE)
[2016-12-31 18:37] LABS: ADD URINE CULTURE? NO (NO); Bacteria FEW /HPF (NEGATIVE); COMPLETE URINE MICROSCOPIC? YES; Epithelial Cells MODERATE /HPF (FEW)
[2016-12-31 19:06] VITALS: BP 119/60; PULSE 76; O2SAT 100
--- NOTE | 2016-12-31 21:34 | XRAY ---
Indication: Chest pain. Comparison: December 22, 2016. PA/lateral chest remains clear. Heart and mediastinal structures within normal limits. No new/acute findings.
== END 2016-12-31 19:06 | disposition home or self-care (01) ==
LOC: ED 17:24 → EEVIPCON 17:24 → ED 19:06
DX: R07.89 Other chest pain (principal); R11.0 Nausea; I10 Essential (primary) hypertension; I25.2 Old myocardial infarction
CPT/HCPCS: 36000; 36415; 71020; 80053; 80307; 81000; 83880; 84484; 85025; 93005; 93041; 96374; 96375; 99284; J1885; J2405; A9270-GY

== ENCOUNTER 2017-06-25 18:10 | Emergency (ER) | payer OTHER ==
[2017-06-25] MEDS ORDERED: DUONEB 0.5-3 MG/3 ml Neb IH ONE ×2 (18:20→18:40)
[2017-06-25 18:24] VITALS: BP 129/93
--- NOTE | 2017-06-25 18:28 | ERPHSYRPT ---
- History of Present Illness Source: patient, EMS (gave ASA 324mg and NTG and NTG paste) Patient Subjective Stated Complaint: pt had coughing spell then began having shortness of breath. pt reports she then began having sternal chest pain. pt states the pain went all the way through to her back and she had some neck pain. Triage Nursing Assessment: pt a&ox3. skin w/d/p. pt report chest pain 2 of 10. Timing/Duration: today Hx Tetanus, Diphtheria Vaccination/Date Given: No (2013) Hx Influenza Vaccination/Date Given: No (2013) Hx Pneumococcal Vaccination/Date Given: Yes (2013) Immunizations Up to Date: Yes <RENUKA ANGEL - Last Filed: 06/25/17 18:53> <AMOL LIM - Last Filed: 06/25/17 20:39> - History of Present Illness Time Seen by Provider: 06/25/17 18:15 Physician History: CC: chest pain Hx: 37 y/o patient from [facility]. She had finished eating. She had a coughing fit and then had substernal chest pain. The pain was severe and associated with shortness of breath. She has hx of asthma and called for her inhaler. It helped. EMS was called and she was brought to ER. She has prior left lobectomy and [facility] heart valve replacement for endocarditis. She had prior hysterectomy. (RENUKA ANGEL) Allergies/Adverse Reactions: citalopram [From Celexa] Allergy (Verified 06/25/17 18:42) paroxetine HCl [From Paxil] Allergy (Verified 12/22/16 00:11) Penicillins Allergy (Verified 12/22/16 00:11) Home Medications: Aspirin EC 81 mg [Ecotrin 81 mg] 81 mg PO DAILY 06/25/17 [History] Ibuprofen 600 mg PO BID 06/25/17 [History] Levetiracetam [Keppra] 2 tab PO BID 06/25/17 [History] Olanzapine [Zyprexa] 10 mg PO DAILY 06/25/17 [History] Omeprazole 20 MG [Prilosec 20 mg] 20 mg PO DAILY 06/25/17 [History] - Review of Systems Constitutional: No Fever, No Chills Eyes: No Symptoms Ears, Nose, & Throat: No Symptoms Respiratory: Cough, Dyspnea Cardiac: Chest Pain Abdominal/Gastrointestinal: No Abdominal Pain, No Nausea, No Vomiting, No Diarrhea Genitourinary Symptoms: No Dysuria Musculoskeletal: Back Pain Skin: No Rash Neurological: No Focal Weakness, No Headache, No Parasthesia All Other Systems: Reviewed and Negative <RENUKA ANGEL - Last Filed: 06/25/17 18:53> - Past Medical History Pertinent Past Medical History: Yes Neurological History: Seizures ENT History: No Pertinent History Cardiac History: Hypertension, Myocardial Infarction ([place]), Other Respiratory History: No Pertinent History Endocrine Medical History: No Pertinent History Musculoskeletal History: Fibromyalgia, Rheumatoid Arthritis GI Medical History: No Pertinent History History: Renal Disease, Other Psycho-Social History: Other Female Reproductive Disorders: No Pertinent History Other Medical History: 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 LEFT LOWER LOBECTOMY. sweets syndrome - Past Surgical History Past Surgical History: Yes Neuro Surgical History: No Pertinent History Cardiac: No Pertinent History Respiratory: No Pertinent History Gastrointestinal: No Pertinent History Genitourinary: Other Female Surgical History: Hysterectomy, Tubal Ligation Other Surgical History: D&C. LEFT LOWER LOBECTOMY. triple valve replacement - Social History Smoking Status: Former smoker How long have you smoked: 15 Exposure to second hand smoke: No Drug Use: marijuana, other Patient Lives Alone: No - Female History Hx Last Menstrual Period: 2012 Hx Now: No <RENUKA ANGEL - Last Filed: 06/25/17 18:53> - Physical Exam General Appearance: alert Eye Exam: PERRL/EOMI Ears, Nose, Throat Exam: normal ENT inspection, moist mucous membranes Neck Exam: normal inspection, non-tender, supple Respiratory Exam: diminished breath sounds, No wheezing Cardiovascular Exam: regular rate/rhythm Gastrointestinal/Abdomen Exam: soft, No tenderness, No distention, No mass, No guarding Extremity Exam: normal inspection, normal range of motion, No calf tenderness, No pedal edema Neurologic Exam: alert, oriented x 3, cooperative, sensation nml, No motor deficits Skin Exam: warm, dry, No rash <RENUKA ANGEL - Last Filed: 06/25/17 18:53> - Nursing Vital Signs Nursing Vital Signs: Initial Vital Signs Temperature 98.2 F 06/25/17 18:24 Pulse Rate 85 06/25/17 18:24 Respiratory Rate 20 02/05/18 18:24 Blood Pressure 129/93 02/05/18 18:24 Pain Scale Pain Intensity 2 - Course Nursing assessment & vital signs reviewed: Yes EKG Interpreted by Me: RATE (78), Sinus Rhythm, NORMAL AXIS, NORMAL INTERVALS ( QTc 458), NORMAL QRS, NORMAL ST-T - Radiology Exams cxr X-ray Interpretation: Reviewed by me (post sternotomy, no pneumonia, no pntx, no fx) <RENUKA ANGEL - Last Filed: 06/25/17 18:53> Ordered Tests: Active Orders 24 hr Category Date Time Status Pharmacy District Manager STAT Care 06/25/17 18:20 Active EKG-ER Only STAT Care 06/25/17 18:20 Active IV Insertion STAT Care 06/25/17 18:20 Active Pulse Oximetry (ED) STAT Care 06/25/17 18:20 Active CHEST 2 VIEWS (PA AND LAT) Stat Exams 06/25/17 18:54 Taken CBC W DIFF Stat Lab 06/25/17 18:34 Completed CMP Stat Lab 06/25/17 18:34 Completed D-DIMER QUANTITATION Stat Lab 06/25/17 19:42 Completed MAGNESIUM Stat Lab 06/25/17 18:34 Completed TROPONIN Q3H Lab 06/25/17 18:34 Completed TROPONIN Q3H Lab 06/25/17 21:30 Ordered TROPONIN Q3H Lab 06/26/17 00:30 Ordered TROPONIN Q3H Lab 06/26/17 03:30 Ordered TROPONIN Q3H Lab 06/26/17 06:30 Ordered Respiratory Nebulizer STAT RT 06/25/17 18:21 Completed Medication Summary Discontinued Medications Generic Name Dose Route Start Last Admin Trade Name Freq PRN Reason Stop Dose Admin Albuterol/Ipratropium 3 ml 06/25/17 18:20 06/25/17 18:49 Duoneb 0.5-3 Mg/3 Ml Neb IH 06/25/17 18:21 3 ml STAT ONE Administration Albuterol/Ipratropium Confirm 06/25/17 18:40 Duoneb 0.5-3 Mg/3 Ml Neb Administered 06/25/17 18:41 Dose 3 ml IH .STK-MED ONE Lab/Rad Data: Laboratory Result Diagrams 06/25/17 18:34 06/25/17 18:34 Laboratory Results 06/25/17 06/25/17 06/25/17 Range/Units 19:42 18:34 18:34 WBC (4.0-10.5) K/mm3 RBC (4.1-5.4) M/mm3 Hgb (12.0-16.0) gm/dl Hct (35-47) % MCV (78-100) fl MCH (26-32) pg MCHC (32-36) g/dl RDW (11.5-14.0) % Plt Count (150-450) K/mm3 MPV (6-9.5) fl Gran % (36.0-66.0) % Lymphocytes % (24.0-44.0) % Monocytes % (0.0-12.0) % Eosinophils % (0.00-5.0) % Basophils % (0.0-0.4) % Basophils # (0-0.4) D-Dimer < 215 (0-500) ng/mL Sodium 141 (136-145) mEq/L Potassium 4.1 (3.5-5.1) mEq/L Chloride 109 H (98-107) mEq/L Carbon Dioxide 19.4 L (21-32) mEq/L Anion Gap 16.6 H (5-15) MEQ/L BUN 21 H (9-20) mg/dL Creatinine 0.99 (0.55-1.30) mg/dl Estimated GFR > 60 ML/MIN Glucose 117 H (70-110) MG/DL Calcium 8.9 (8.5-10.1) mg/dL Magnesium 1.7 L (1.8-2.4) mg/dL Total Bilirubin 0.60 (0.2-1.0) mg/dL AST 24 (15-37) U/L ALT 33 (12-78) U/L Alkaline Phosphatase 126 H (46-116) U/L Troponin I < 0.017 (0.000-0.056) ng/ml Serum Total Protein 7.7 (6.4-8.2) gm/dL Albumin 4.1 (3.4-5.0) g/dL 06/25/17 Range/Units 18:34 WBC 8.8 (4.0-10.5) K/mm3 RBC 4.60 (4.1-5.4) M/mm3 Hgb 13.7 (12.0-16.0) gm/dl Hct 41.8 (35-47) % MCV 90.9 (78-100) fl MCH 29.8 (26-32) pg MCHC 32.8 (32-36) g/dl RDW 14.2 H (11.5-14.0) % Plt Count 228 (150-450) K/mm3 MPV 10.3 H (6-9.5) fl Gran % 71.3 H (36.0-66.0) % Lymphocytes % 18.3 L (24.0-44.0) % Monocytes % 7.7 (0.0-12.0) % Eosinophils % 2.2 (0.00-5.0) % Basophils % 0.5 (0.0-0.4) % Basophils # 0.04 (0-0.4) D-Dimer (0-500) ng/mL Sodium (136-145) mEq/L Potassium (3.5-5.1) mEq/L Chloride (98-107) mEq/L Carbon Dioxide (21-32) mEq/L Anion Gap (5-15) MEQ/L BUN (9-20) mg/dL Creatinine (0.55-1.30) mg/dl Estimated GFR ML/MIN Glucose (70-110) MG/DL Calcium (8.5-10.1) mg/dL Magnesium (1.8-2.4) mg/dL Total Bilirubin (0.2-1.0) mg/dL AST (15-37) U/L ALT (12-78) U/L Alkaline Phosphatase (46-116) U/L Troponin I (0.000-0.056) ng/ml Serum Total Protein (6.4-8.2) gm/dL Albumin (3.4-5.0) g/dL <RENUKA ANGEL - Last Filed: 06/25/17 18:53> <AMOL LIM - Last Filed: 06/25/17 20:39> - Progress Progress Note: 06/25/17 18:53 Pt stable. Report to Dr Lim for further care and disposition. (RENUKA ANGEL) 06/25/17 20:[address] LIM 2016: EOMI, PHARYNX PINK, LUNGS HAVE NO RALES OR WHEEZING, NO CARDIAC RUB, ABDOMINAL B.S. NORMAL, NO ANKLE EDEMA, ALERT & COOPERATIVE. (AMOL LIM) <RENUKA ANGEL J - Last Filed: 06/25/17 18:53> - Departure Time of Disposition: 20:38 Departure Disposition: Longterm/Retirement Critical Care Time: No <AMOL LIM - Last Filed: 06/25/17 20:39> - Departure Clinical Impression: CHEST PAIN, MILD HYPOMAGNESEMIA Condition: Stable Referrals: MIRANDA ETIENNE [Primary Care Provider] - Instructions: Chest Pain (DC) Additional Instructions: FOLLOW UP WITH PRIVATE DOCTOR TOMORROW.
[2017-06-25 18:37] LABS: BASOPHIL % 0.5 % (0.0-0.4); Basophil (Absolute #) 0.04 (0-0.4); Eosinophil % 2.2 % (0.00-5.0); Eosinophil (Absolute #) 0.19 (0-0.5); Granulocytes % 71.3 % (36.0-66.0); Hematocrit 41.8 % (35-47); Hemoglobin 13.7 gm/dl (12.0-16.0); Lymphocyte (Absolute #) 1.62 (1.0-4.6); Lymphocytes % 18.3 % (24.0-44.0); Mean Cell Volume 90.9 fl (78-100); Mean Corpuscular Hemoglobin 29.8 pg (26-32); Mean Corpuscular Hgb Concent. 32.8 g/dl (32-36); Mean Platelet Volume 10.3 fl (6-9.5); Monocyte (Absolute #) 0.68 (0.0-1.3); Monocytes % 7.7 % (0.0-12.0); Platelet Count 228 K/mm3 (150-450); Red Cell Distribution Width 14.2 % (11.5-14.0); White Blood Count 8.8 K/mm3 (4.0-10.5)
[2017-06-25 19:00] VITALS: O2SAT 96
[2017-06-25 19:02] LABS: ALBUMIN 4.1 g/dL (3.4-5.0); ALKALINE PHOSPHATASE 126 U/L (46-116); ANION GAP 16.6 MEQ/L (5-15); BLOOD UREA NITROGEN 21 mg/dL (9-20); CHLORIDE 109 mEq/L (98-107); Calcium 8.9 mg/dL (8.5-10.1); Carbon Dioxide 19.4 mEq/L (21-32); Creatinine 1 0.99 mg/dl (0.55-1.30); EST GLOMERULAR FILTRATION RATE > 60 ML/MIN; Glucose 117 MG/DL (70-110); MAGNESIUM 1.7 mg/dL (1.8-2.4); Potassium 4.1 mEq/L (3.5-5.1); SGOT/AST 24 U/L (15-37); SGPT/ALT 33 U/L (12-78); SODIUM 141 mEq/L (136-145); Total Protein 7.7 gm/dL (6.4-8.2)
[2017-06-25] MEDS ORDERED: MAG-OX 400 ONE (20:41)
[2017-06-25 20:50] VITALS: PULSE 86
[2017-06-25] MEDS ORDERED: MAG-OX 400 PO SCH (22:00)
--- NOTE | 2017-06-26 08:34 | XRAY ---
Indication: Chest pain and cough. Comparison: December 31, 2016. PA/lateral chest again demonstrates normal heart and lungs. Bony thorax intact with stable sternotomy wires. No new/acute findings.
== END 2017-06-25 20:50 | disposition home or self-care (01) ==
LOC: ED 18:10
DX: R07.9 Chest pain, unspecified (principal); E83.42 Hypomagnesemia; R06.02 Shortness of breath
CPT/HCPCS: 36415; 71046; 80053; 83735; 84484; 85025; 85379; 93005; 93041; 94640; 99283; 99284; A9270-GY

== ENCOUNTER 2018-11-20 23:19 | Emergency (ER) | payer OTHER ==
--- NOTE | 2018-11-20 23:45 | ERPHSYRPT ---
- History of Present Illness Time Seen by Provider: 11/20/18 23:39 Source: patient, other ([facility] officials) Exam Limitations: no limitations Physician History: 38-year-old white female with history of high blood pressure, myocardial infarction, fibromyalgia, rheumatoid arthritis, bacterial endocarditis, Sweet syndrome who apparently has a history of seizures and is on Keppra and Klonopin. Patient apparently was has several seizures at the [facility] this evening. Composed of tonic-clonic activity. Patient states that she did not think she was postictal. Patient apparently has been on Klonopin 3 times a day however is not had any since yesterday she apparently had been transferred from the [facility] to the [facility]. Apparently at [place] does not allow Klonopin. Patient denies any other complaints she her ride she does not appear to be in acute distress at this time. Past medical history includes high blood pressure, myocardial infarction, fibromyalgia, rheumatoid arthritis, bacterial endocarditis from baths ALT, left lower extremity sweets syndrome. Past surgical history includes hysterectomy, D&C, mitral valve replacement Patient states she is not currently using drugs Timing/Duration: today (this evening) Severity: moderate Associated Symptoms: seizure (seizure activity x3 at [facility]), No nausea, No vomiting, No abdominal pain, No shortness of breath, No heartburn, No diaphoresis, No cough, No chills, No chest pain, No fever, No headaches, No loss of appetite, No malaise, No rash, No syncope Allergies/Adverse Reactions: citalopram [From Celexa] Allergy (Verified 06/25/17 18:42) paroxetine HCl [From Paxil] Allergy (Verified 12/22/16 00:11) Penicillins Allergy (Verified 12/22/16 00:11) Home Medications: Aspirin EC 81 mg [Ecotrin 81 mg] 81 mg PO DAILY 06/25/17 [History] Ibuprofen 600 mg PO BID PRN 06/25/17 [History] Levetiracetam [Keppra] 1,000 mg PO BID 06/25/17 [History] Escitalopram Oxalate 10 mg [Lexapro 10 MG] 20 mg PO DAILY 11/20/18 [History] clonazePAM [Klonopin] 1 mg PO TID 11/20/18 [History] Hx Tetanus, Diphtheria Vaccination/Date Given: No (2013) Hx Influenza Vaccination/Date Given: No (2013) Hx Pneumococcal Vaccination/Date Given: Yes (2013) - Review of Systems Constitutional: No Fever, No Chills Eyes: No Symptoms Ears, Nose, & Throat: No Symptoms Respiratory: No Cough, No Dyspnea Cardiac: No Chest Pain, No Edema, No Syncope Abdominal/Gastrointestinal: No Abdominal Pain, No Nausea, No Vomiting, No Diarrhea Genitourinary Symptoms: No Dysuria Musculoskeletal: No Back Pain, No Neck Pain Skin: No Rash Neurological: Seizure (seizure x3 at [facility]), No Dizziness, No Focal Weakness, No Gait Changes, No Headache, No Irritability, No Lethargy, No Paralysis, No Parasthesia, No Sensory Changes, No Speech Changes, No Tics, No Tremors, No Vertigo Psychological: No Symptoms Endocrine: No Symptoms All Other Systems: Reviewed and Negative - Past Medical History Pertinent Past Medical History: Yes Neurological History: Seizures ENT History: No Pertinent History Cardiac History: Hypertension, Myocardial Infarction ([place]), Other Respiratory History: No Pertinent History Endocrine Medical History: No Pertinent History Musculoskeletal History: Fibromyalgia, Rheumatoid Arthritis GI Medical History: No Pertinent History History: Renal Disease, Other Psycho-Social History: Other Female Reproductive Disorders: No Pertinent History Other Medical History: 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 LEFT LOWER LOBECTOMY. sweets syndrome - Past Surgical History Past Surgical History: Yes Neuro Surgical History: No Pertinent History Cardiac: No Pertinent History Respiratory: No Pertinent History Gastrointestinal: No Pertinent History Genitourinary: Other Female Surgical History: Hysterectomy, Tubal Ligation Other Surgical History: D&C. LEFT LOWER LOBECTOMY. triple valve replacement - Social History Smoking Status: Former smoker How long have you smoked: 15 Exposure to second hand smoke: No Drug Use: marijuana, other Patient Lives Alone: No - Nursing Vital Signs Nursing Vital Signs: Initial Vital Signs Temperature 98.0 F 11/20/18 23:19 Pulse Rate 86 11/20/18 23:19 Respiratory Rate 16 11/20/18 23:19 Blood Pressure 108/92 11/20/18 23:19 O2 Sat by Pulse Oximetry 98 11/20/18 23:19 Pain Scale Pain Intensity 0 - Physical Exam General Appearance: no apparent distress, alert Eye Exam: PERRL/EOMI, eyes nml inspection Ears, Nose, Throat Exam: normal ENT inspection, TMs normal, pharynx normal, moist mucous membranes Neck Exam: normal inspection, non-tender, supple, full range of motion Respiratory Exam: normal breath sounds, lungs clear, No respiratory distress Cardiovascular Exam: regular rate/rhythm, normal heart sounds, normal peripheral pulses, capillary refill <2 sec Gastrointestinal/Abdomen Exam: soft, normal bowel sounds, No tenderness, No mass Back Exam: normal inspection, normal range of motion, No CVA tenderness, No vertebral tenderness Extremity Exam: normal inspection, normal range of motion, pelvis stable Neurologic Exam: alert, oriented x 3, cooperative, c application developer II-XII nml as tested, normal mood/affect, nml cerebellar function, nml station & gait, sensation nml, No motor deficits Skin Exam: normal color, warm, dry, No rash SpO2 Interpretation: normal (98%) SpO2: 98 - Course Nursing assessment & vital signs reviewed: Yes EKG Interpreted by Me: RATE (73 bpm), Sinus Rhythm, Other (EKG: Sinus rhythm 73 bpm, axis:SI/QIII pattern no acute ST or T wave changes compared to June 25, 2017) Rhythm Strip: Rate Ordered Tests: Active Orders 24 hr Category Date Time Status EKG-ER Only STAT Care 11/20/18 23:39 Active Pulse Oximetry (ED) STAT Care 11/20/18 23:39 Active CULTURE,URINE Stat Lab 11/21/18 00:15 Received UA W/RFX UR CULTURE Stat Lab 11/21/18 00:15 Completed Urine Triage Profile Stat Lab 11/21/18 00:15 Completed Medication Summary Generic Name Dose Route Start Last Admin Trade Name Freq PRN Reason Stop Dose Admin Clonazepam 1 mg 11/21/18 10:00 Klonopin PO 12/21/18 09:59 BID HAYES Discontinued Medications Generic Name Dose Route Start Last Admin Trade Name Freq PRN Reason Stop Dose Admin Ceftriaxone Sodium Confirm 11/21/18 00:58 Rocephin 1000 Mg Inj Administered 11/21/18 00:59 Dose 1,000 mg .ROUTE .STK-MED ONE Ceftriaxone Sodium 1,000 mg 11/21/18 01:03 11/21/18 01:13 Rocephin 1000 Mg Inj IM 11/21/18 01:04 1,000 mg STAT ONE Administration Clonazepam Confirm 11/21/18 01:16 Klonopin 0.5 Mg Administered 11/21/18 01:17 Dose 1 mg .ROUTE .STK-MED ONE Lidocaine HCl Confirm 11/21/18 00:59 Xylocaine 1% Hcl 20 Ml Mdv Administered 11/21/18 01:00 Dose 3 ml .ROUTE .STK-MED ONE Lorazepam 1 mg 11/20/18 23:55 11/21/18 00:04 Ativan 2 Mg/1 Ml Vial IM 11/21/18 00:04 Not Given STAT ONE Lorazepam Confirm 11/21/18 00:00 Ativan 2 Mg/1 Ml Vial Administered 11/21/18 00:01 Dose 2 mg .ROUTE .STK-MED ONE Lorazepam 2 mg 11/21/18 00:04 11/21/18 00:13 Ativan 2 Mg/1 Ml Vial IM 11/21/18 00:05 2 mg STAT ONE Administration Lab/Rad Data: Laboratory Result Diagrams 11/20/18 00:01 11/20/18 00:01 Laboratory Results 11/21/18 11/21/18 11/20/18 Range/Units 00:15 00:15 00:01 WBC (4.0-10.5) K/mm3 RBC (4.1-5.4) M/mm3 Hgb (12.0-16.0) gm/dl Hct (35-47) % MCV (78-100) fl MCH (26-32) pg MCHC (32-36) g/dl RDW (11.5-14.0) % Plt Count (150-450) K/mm3 MPV (6-9.5) fl Gran % (36.0-66.0) % Eos # (Auto) (0-0.5) Absolute Lymphs (auto) (1.0-4.6) Absolute Monos (auto) (0.0-1.3) Lymphocytes % (24.0-44.0) % Monocytes % (0.0-12.0) % Eosinophils % (0.00-5.0) % Basophils % (0.0-0.4) % Absolute Granulocytes (1.4-6.9) Basophils # (0-0.4) Sodium 138 (137-145) mmol/L Potassium 3.5 (3.5-5.1) mmol/L Chloride 111 H (98-107) mmol/L Carbon Dioxide 19 L (22-30) mmol/L Anion Gap 12.1 (5-15) MEQ/L BUN 17 (7-17) mg/dL Creatinine 0.71 (0.52-1.04) mg/dL Estimated GFR > 60.0 ML/MIN Glucose 93 (74-106) mg/dL Calcium 8.3 L (8.4-10.2) mg/dL Total Bilirubin 0.90 (0.2-1.3) mg/dL AST 32 (14-36) U/L ALT 39 H (0-35) U/L Alkaline Phosphatase 107 (38-126) U/L Serum Total Protein 5.7 L (6.3-8.2) g/dL Albumin 3.0 L (3.5-5.0) g/dL Urine Color MARCUS (YELLOW) Urine Appearance SLIGHTLY CLOUDY (CLEAR) Urine pH 5.0 (5-6) Ur Specific [place] 1.024 (1.005-1.025) Urine Protein NEGATIVE (Negative) Urine Ketones NEGATIVE (NEGATIVE) Urine Blood NEGATIVE (0-5) Margarito/ul Urine Nitrite POSITIVE (NEGATIVE) Urine Bilirubin NEGATIVE (NEGATIVE) Urine Urobilinogen 4 (0-1) mg/dL Ur Leukocyte Esterase LARGE (NEGATIVE) Urine WBC (Auto) >100 (0-5) /HPF Urine RBC (Auto) 6-10 (0-2) /HPF U Epithel Cells (Auto) RARE (FEW) /HPF Urine Bacteria (Auto) MODERATE (NEGATIVE) /HPF Urine Mucus (Auto) SLIGHT (NEGATIVE) /HPF Urine Culture Reflexed YES (NO) Urine Glucose NEGATIVE (NEGATIVE) mg/dL Urine Opiates Level NEGATIVE (NEGATIVE) Ur Methadone NEGATIVE (NEGATIVE) Urine Barbiturates NEGATIVE (NEGATIVE) Ur Phencyclidine (PCP) NEGATIVE (NEGATIVE) Urine Amphetamine NEGATIVE (NEGATIVE) U Benzodiazepine Level NEGATIVE (NEGATIVE) Urine Cocaine NEGATIVE (NEGATIVE) Urine Marijuana (THC) NEGATIVE (NEGATIVE) 11/20/18 Range/Units 00:01 WBC 6.5 (4.0-10.5) K/mm3 RBC 4.97 (4.1-5.4) M/mm3 Hgb 15.1 (12.0-16.0) gm/dl Hct 45.0 (35-47) % MCV 90.5 (78-100) fl MCH 30.4 (26-32) pg MCHC 33.6 (32-36) g/dl RDW 15.0 H (11.5-14.0) % Plt Count 242 (150-450) K/mm3 MPV 10.1 H (6-9.5) fl Gran % 75.2 H (36.0-66.0) % Eos # (Auto) 0.17 (0-0.5) Absolute Lymphs (auto) 0.73 L (1.0-4.6) Absolute Monos (auto) 0.67 (0.0-1.3) Lymphocytes % 11.3 L (24.0-44.0) % Monocytes % 10.4 (0.0-12.0) % Eosinophils % 2.6 (0.00-5.0) % Basophils % 0.5 (0.0-0.4) % Absolute Granulocytes 4.87 (1.4-6.9) Basophils # 0.03 (0-0.4) Sodium (137-145) mmol/L Potassium (3.5-5.1) mmol/L Chloride (98-107) mmol/L Carbon Dioxide (22-30) mmol/L Anion Gap (5-15) MEQ/L BUN (7-17) mg/dL Creatinine (0.52-1.04) mg/dL Estimated GFR ML/MIN Glucose (74-106) mg/dL Calcium (8.4-10.2) mg/dL Total Bilirubin (0.2-1.3) mg/dL AST (14-36) U/L ALT (0-35) U/L Alkaline Phosphatase (38-126) U/L Serum Total Protein (6.3-8.2) g/dL Albumin (3.5-5.0) g/dL Urine Color (YELLOW) Urine Appearance (CLEAR) Urine pH (5-6) Ur Specific [place] (1.005-1.025) Urine Protein (Negative) Urine Ketones (NEGATIVE) Urine Blood (0-5) Margarito/ul Urine Nitrite (NEGATIVE) Urine Bilirubin (NEGATIVE) Urine Urobilinogen (0-1) mg/dL Ur Leukocyte Esterase (NEGATIVE) Urine WBC (Auto) (0-5) /HPF Urine RBC (Auto) (0-2) /HPF U Epithel Cells (Auto) (FEW) /HPF Urine Bacteria (Auto) (NEGATIVE) /HPF Urine Mucus (Auto) (NEGATIVE) /HPF Urine Culture Reflexed (NO) Urine Glucose (NEGATIVE) mg/dL Urine Opiates Level (NEGATIVE) Ur Methadone (NEGATIVE) Urine Barbiturates (NEGATIVE) Ur Phencyclidine (PCP) (NEGATIVE) Urine Amphetamine (NEGATIVE) U Benzodiazepine Level (NEGATIVE) Urine Cocaine (NEGATIVE) Urine Marijuana (THC) (NEGATIVE) - Progress Progress: improved Progress Note: 11/21/18 00:57 Patient's urinalysis shows greater than 100 white cells per high-power field with positive nitrates and positive leukocyte esterase. Patient has a stated allergy to penicillin however she is received Rocephin on December 22, 2016 without any problems. Will go ahead and give patient Rocephin 1 g IM. I have told the patient that there is also risk for cross-reactivity with cephalosporins and penicillin blood have not seen this very frequently with Rocephin. She is agreeable to receiving Rocephin. Patient apparently has been on Klonopin 1 mg 3 times a day for years. She apparently had been transferred from the [facility] to [facility]. And apparently so until was not administrating Klonopin.. She does have several seizures this afternoon she stated she really didn't think he had a postictal period. I have given patient Ativan 2 mg IM. And I've asked the nurse to see if the patient could get her Clonopin in [facility]. The patient is taking Keppra at the [facility] and is receiving this. Patient is in no acute distress at this time awaiting urine drug screen. Patient's CBC white blood cell 6.5 hemoglobin 15.1 hematocrit 45.0 platelets 242 Patient's chemistry sodium 138 potassium 3.5 chloride 111 bicarbonate 19 BUN 17 creatinine 0.71 glucose is 93. Patient is stable vitals are stable Anticipate discharge with Bactrim. Patient to resume her current medications 11/21/18 01:01 Patient's urine drug screen is negative. 11/21/18 01:16 I have written a prescription for the patient for clonazepam 1 mg #10 tablets to be taken twice daily this will be sent with her to the [facility]. The patient also will be given 2 1 mg clonazepam tablets to take with her to the [facility]. Patient is to followup with the [facility] nurse. Patient has been taking clonazepam 1 mg twice a day at the [facility]. Patient will need to be weaned from this med . inspect has been reviewed. - Departure Departure Disposition: Long-Term/[facility] Clinical Impression: Seizure Benzodiazepine withdrawal Qualifiers: Complication of substance-induced condition: with unspecified complication Qualified Code(s): F13.239 - Sedative, hypnotic or anxiolytic dependence with withdrawal, unspecified UTI (urinary tract infection) Qualifiers: Urinary tract infection type: site unspecified Hematuria presence: without hematuria Qualified Code(s): N39.0 - Urinary tract infection, site not specified Condition: Fair Critical Care Time: No Referrals: MIRANDA ETIENNE [Primary Care Provider] - Additional Instructions: Return to [facility]. Patient will need to be weaned from benzodiazepines she currently has been on 1 mg twice a day. She cannot stop this suddenly. Bactrim DS one orally twice a day for 10 days for urinary tract infection. Followup with [facility] doctor. Plenty of fluids. Return for acute distress or for severe symptoms. No hazardous activity, no [place], no driving, take showers instead of baths, do not engage in any activity which might harm patient or others. Prescriptions: Smz/Tmp Ds Tablet [Bactrim Ds Tablet] 1 udtab PO BID #20 tablet
[2018-11-20] MEDS ORDERED: Ativan 2 MG/1 ML VIAL IM ONE (23:55)
[2018-11-21] MEDS ORDERED: Ativan 2 MG/1 ML VIAL ONE
[2018-11-21] MEDS ORDERED: Ativan 2 MG/1 ML VIAL IM ONE (00:04)
[2018-11-21 00:08] LABS: BASOPHIL % 0.5 % (0.0-0.4); Basophil (Absolute #) 0.03 (0-0.4); Eosinophil % 2.6 % (0.00-5.0); Eosinophil (Absolute #) 0.17 (0-0.5); Granulocyte Absolute (ANC) 4.87 (1.4-6.9); Granulocytes % 75.2 % (36.0-66.0); Hemoglobin 15.1 gm/dl (12.0-16.0); Lymphocyte (Absolute #) 0.73 (1.0-4.6); Lymphocytes % 11.3 % (24.0-44.0); Mean Cell Volume 90.5 fl (78-100); Mean Corpuscular Hemoglobin 30.4 pg (26-32); Mean Corpuscular Hgb Concent. 33.6 g/dl (32-36); Mean Platelet Volume 10.1 fl (6-9.5); Monocyte (Absolute #) 0.67 (0.0-1.3); Monocytes % 10.4 % (0.0-12.0); Platelet Count 242 K/mm3 (150-450); Red Blood Count 4.97 M/mm3 (4.1-5.4); White Blood Count 6.5 K/mm3 (4.0-10.5)
[2018-11-21 00:21] LABS: ALKALINE PHOSPHATASE 107 U/L (38-126); ANION GAP 12.1 MEQ/L (5-15); BLOOD UREA NITROGEN 17 mg/dL (7-17); CHLORIDE 111 mmol/L (98-107); Calcium 8.3 mg/dL (8.4-10.2); Carbon Dioxide 19 mmol/L (22-30); Creatinine 1 0.71 mg/dL (0.52-1.04); Glucose 93 mg/dL (74-106); Potassium 3.5 mmol/L (3.5-5.1); SGOT/AST 32 U/L (14-36); SGPT/ALT 39 U/L (0-35); SODIUM 138 mmol/L (137-145); Total Protein 5.7 g/dL (6.3-8.2)
[2018-11-21 00:48] LABS: Appearance SLIGHTLY CLOUDY (CLEAR); Bacteria MODERATE /HPF (NEGATIVE); Bilirubin NEGATIVE (NEGATIVE); Blood NEGATIVE Ery/ul (0-5); Epithelial Cells RARE /HPF (FEW); Glucose NEGATIVE (NEGATIVE); Ketones NEGATIVE (NEGATIVE); Leukocyte Esterase LARGE (NEGATIVE); Mucus SLIGHT /HPF (NEGATIVE); Nitrite POSITIVE (NEGATIVE); Protein,Urine Dip NEGATIVE (Negative); Specific Gravity 1.024 (1.005-1.025); Urobilinogen 4 mg/dL (0-1); WBC >100 /HPF (0-5)
[2018-11-21 00:56] LABS: Amphetamine,Urine NEGATIVE (NEGATIVE); Barbiturate,Urine NEGATIVE (NEGATIVE); Benzodiazepine,Urine NEGATIVE (NEGATIVE); Cocaine,Urine NEGATIVE (NEGATIVE); Methadone,Urine NEGATIVE (NEGATIVE); Opiate,Urine NEGATIVE (NEGATIVE); PCP,Urine NEGATIVE (NEGATIVE); THC,Urine NEGATIVE (NEGATIVE)
[2018-11-21] MEDS ORDERED: Rocephin 1000 MG INJ ONE (00:58)
[2018-11-21] MEDS ORDERED: XYLOCAINE 1% HCL 20 ML MDV ONE (00:59)
[2018-11-21] MEDS ORDERED: Rocephin 1000 MG INJ IM ONE (01:03)
[2018-11-21] MEDS ORDERED: Klonopin 0.5 MG ONE ×2 (01:16→01:23)
[2018-11-21 01:43] VITALS: BP 95/68; PULSE 67; O2SAT 18
[2018-11-21] MEDS ORDERED: KLONOPIN PO SCH (10:00)
== END 2018-11-21 01:42 | disposition home or self-care (01) ==
LOC: ED 23:19 → EEVIPCON 23:19 → ED 11-21 01:42
DX: G40.909 Epilepsy, unspecified, not intractable, without status epilepticus (principal); F13.239 Sedative, hypnotic or anxiolytic dependence with withdrawal, unspecified; N39.0 Urinary tract infection, site not specified; I10 Essential (primary) hypertension; I25.2 Old myocardial infarction; M79.7 Fibromyalgia; M06.9 Rheumatoid arthritis, unspecified; N28.9 Disorder of kidney and ureter, unspecified
CPT/HCPCS: 36415; 80053; 80307; 81001; 85025; 87077; 87086; 87186; 93005; 94760; 96372; 99284; J0696; J2060; A9270-GY

== ENCOUNTER 2018-12-04 02:02 | Emergency (ER) | payer MEDICAID ==
[2018-12-04] MEDS ORDERED: Sodium Chloride 0.9% 1000 ML 1,000 ML IV SCH (02:45)
[2018-12-04 02:51] LABS: BASOPHIL % 0.5 % (0.0-0.4); Basophil (Absolute #) 0.03 (0-0.4); Eosinophil % 2.8 % (0.00-5.0); Eosinophil (Absolute #) 0.17 (0-0.5); Granulocyte Absolute (ANC) 4.57 (1.4-6.9); Granulocytes % 74.5 % (36.0-66.0); Hematocrit 39.3 % (35-47); Hemoglobin 13.6 gm/dl (12.0-16.0); Lymphocyte (Absolute #) 0.89 (1.0-4.6); Lymphocytes % 14.5 % (24.0-44.0); Mean Cell Volume 90.8 fl (78-100); Mean Corpuscular Hemoglobin 31.4 pg (26-32); Mean Corpuscular Hgb Concent. 34.6 g/dl (32-36); Mean Platelet Volume 9.9 fl (6-9.5); Monocyte (Absolute #) 0.47 (0.0-1.3); Monocytes % 7.7 % (0.0-12.0); Platelet Count 225 K/mm3 (150-450); Red Blood Count 4.33 M/mm3 (4.1-5.4); Red Cell Distribution Width 14.3 % (11.5-14.0); White Blood Count 6.1 K/mm3 (4.0-10.5)
[2018-12-04] MEDS ORDERED: Sodium Chloride 0.9% 1000 ML 1,000 ML ONE (02:59)
--- NOTE | 2018-12-04 02:59 | ERPHSYRPT ---
- History of Present Illness Time Seen by Provider: 12/04/18 02:45 Source: patient Exam Limitations: no limitations Patient Subjective Stated Complaint: per ems, pt had a seizure lasting approx 2 minutes. states while in the alf, they have taken her off of some of her medication Triage Nursing Assessment: pt alert and oriented, answers questions approp. pt stands and ambulates from ems cot to stretcher per self. steady gait ntoed. respirations nonlabored. skin pink warm and dry. pupils equal and reactive Physician History: 38-year-old white female brought from the alf with complaint of seizure activity. Patient apparently 45 minutes prior to arrival was noted to be sleeping when she suddenly began to cry with tract her arms across her body appeared to turn somewhat dusky she had approximately 2 minutes of tonic-clonic activity as this began to stop she apparently was talking to the on site manager. She did not have any urinary incontinence patient arrives alert oriented x3. Patient had been seen on November 20 secondary to seizure activity at that time the patient apparently had abruptly stopped clonazepam she apparently was able to take this 2 additional days but has not had any since beginning of the month. Patient apparently had been previously on citalopram however she has had none in November she apparently also had been nontoxic HEENT and this has been stopped on November 28. 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 Past social history includes tobacco use in the past and IV drug use in the past. And is Timing/Duration: today (45 minutes prior to arrival) Severity: moderate Modifying Factors: Improves With: nothing Associated Symptoms: chest pain (on site manager states that patient told her that she was having chest pain immediately after seizing), No nausea, No vomiting, No abdominal pain, No shortness of breath, No heartburn, No diaphoresis, No cough, No chills, No fever, No headaches, No loss of appetite, No malaise, No rash, No syncope, No seizure, No weakness Allergies/Adverse Reactions: citalopram [From Celexa] Allergy (Verified 12/04/18 02:20) paroxetine HCl [From Paxil] Allergy (Verified 12/04/18 02:20) Penicillins Allergy (Verified 12/04/18 02:20) Home Medications: Aspirin EC 81 mg [Ecotrin 81 mg] 81 mg PO DAILY 06/25/17 [History] Ibuprofen 600 mg PO BID PRN 06/25/17 [History] Levetiracetam [Keppra] 1,000 mg PO BID 06/25/17 [History] Escitalopram Oxalate 10 mg [Lexapro 10 MG] 20 mg PO DAILY 11/20/18 [History] clonazePAM [Klonopin] 1 mg PO TID 11/20/18 [History] Hx Tetanus, Diphtheria Vaccination/Date Given: Yes (2013) Hx Influenza Vaccination/Date Given: No (2013) Hx Pneumococcal Vaccination/Date Given: Yes (2013) Immunizations Up to Date: Yes - Review of Systems Constitutional: No Fever, No Chills Eyes: No Symptoms Ears, Nose, & Throat: No Symptoms Respiratory: No Cough, No Dyspnea Cardiac: Chest Pain (patient told on site manager she was having chest pain immediately after seizing no chest pain at this time) Abdominal/Gastrointestinal: No Abdominal Pain, No Nausea, No Vomiting, No Diarrhea Genitourinary Symptoms: No Dysuria Musculoskeletal: No Back Pain, No Neck Pain Skin: No Rash Neurological: Seizure, No Dizziness, No Focal Weakness, No Gait Changes, No Headache, No Irritability, No Lethargy, No Paralysis, No Parasthesia, No Sensory Changes, No Speech Changes, No Tics, No Tremors, No Vertigo Psychological: No Symptoms Endocrine: No Symptoms All Other Systems: Reviewed and Negative - Past Medical History Pertinent Past Medical History: Yes Neurological History: Seizures ENT History: No Pertinent History Cardiac History: Hypertension, Myocardial Infarction ([place]), Other Respiratory History: No Pertinent History Endocrine Medical History: No Pertinent History Musculoskeletal History: Fibromyalgia, Rheumatoid Arthritis GI Medical History: No Pertinent History History: Renal Disease, Other Psycho-Social History: Other Female Reproductive Disorders: No Pertinent History Other Medical History: 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 LEFT LOWER LOBECTOMY. sweets syndrome - Past Surgical History Past Surgical History: Yes Neuro Surgical History: No Pertinent History Cardiac: No Pertinent History Respiratory: No Pertinent History Gastrointestinal: No Pertinent History Genitourinary: Other Female Surgical History: Hysterectomy, Tubal Ligation Other Surgical History: D&C. LEFT LOWER LOBECTOMY. triple valve replacement - Social History Smoking Status: Former smoker How long have you smoked: 15 Exposure to second hand smoke: No Drug Use: none Patient Lives Alone: No (alf) - Female History Hx Last Menstrual Period: hyster Hx Now: No - Nursing Vital Signs Nursing Vital Signs: Initial Vital Signs Temperature 97.5 F 12/04/18 02:06 Pulse Rate 61 12/04/18 02:06 Respiratory Rate 18 12/04/18 02:06 Blood Pressure 107/68 12/04/18 02:06 O2 Sat by Pulse Oximetry 96 12/04/18 02:06 Pain Scale Pain Intensity 3 - Physical Exam General Appearance: no apparent distress, alert Eye Exam: PERRL/EOMI, eyes nml inspection Ears, Nose, Throat Exam: normal ENT inspection, TMs normal, pharynx normal, moist mucous membranes Neck Exam: normal inspection, non-tender, supple, full range of motion Respiratory Exam: normal breath sounds, lungs clear, No respiratory distress Cardiovascular Exam: regular rate/rhythm, normal heart sounds, normal peripheral pulses, capillary refill <2 sec Gastrointestinal/Abdomen Exam: soft, normal bowel sounds, No tenderness, No mass Back Exam: normal inspection, normal range of motion, No CVA tenderness, No vertebral tenderness Extremity Exam: normal inspection, normal range of motion, pelvis stable Neurologic Exam: alert, oriented x 3, cooperative, bridge operator II-XII nml as tested, normal mood/affect, nml cerebellar function, nml station & gait, sensation nml, No motor deficits Skin Exam: normal color, warm, dry, No rash SpO2 Interpretation: normal (96%) SpO2: 96 - Course Nursing assessment & vital signs reviewed: Yes EKG Interpreted by Me: RATE (60 bpm), Sinus Rhythm, NORMAL AXIS, Other (EKG: Sinus rhythm, 60 beats per minute, axisSI/QIII pattern, no acute ST or T wave changes compared to November 21, 2018) Ordered Tests: Active Orders 24 hr Category Date Time Status EKG-ER Only STAT Care 12/04/18 02:44 Active IV Insertion STAT Care 12/04/18 02:44 Active CBC W DIFF Stat Lab 12/04/18 02:49 Completed CMP Stat Lab 12/04/18 02:49 Completed CULTURE,URINE Stat Lab 12/04/18 03:15 Received TROPONIN Q3H Lab 12/04/18 03:01 Completed TROPONIN Q3H Lab 12/04/18 06:00 Completed TROPONIN Q3H Lab 12/04/18 09:00 Ordered TROPONIN Q3H Lab 12/04/18 12:00 Ordered TROPONIN Q3H Lab 12/04/18 15:00 Ordered UA W/RFX UR CULTURE Stat Lab 12/04/18 03:15 Completed Urine Triage Profile Stat Lab 12/04/18 03:15 Completed Medication Summary Generic Name Dose Route Start Last Admin Trade Name Freq PRN Reason Stop Dose Admin Sodium Chloride 1,000 mls @ 100 mls/hr 12/04/18 02:45 12/04/18 03:01 Sodium Chloride 0.9% 1000 Ml IV 01/03/19 02:44 100 mls/hr .Q10H HAYES Administration Discontinued Medications Generic Name Dose Route Start Last Admin Trade Name Freq PRN Reason Stop Dose Admin Aspirin 324 mg 12/04/18 03:53 12/04/18 03:57 Baby Aspirin 81 Mg Chew PO 12/04/18 03:54 324 mg STAT ONE Administration Lab/Rad Data: Laboratory Result Diagrams 12/04/18 02:49 12/04/18 02:49 Laboratory Results 12/04/18 12/04/18 12/04/18 Range/Units 06:00 03:15 03:15 WBC (4.0-10.5) K/mm3 RBC (4.1-5.4) M/mm3 Hgb (12.0-16.0) gm/dl Hct (35-47) % MCV (78-100) fl MCH (26-32) pg MCHC (32-36) g/dl RDW (11.5-14.0) % Plt Count (150-450) K/mm3 MPV (6-9.5) fl Gran % (36.0-66.0) % Eos # (Auto) (0-0.5) Absolute Lymphs (auto) (1.0-4.6) Absolute Monos (auto) (0.0-1.3) Lymphocytes % (24.0-44.0) % Monocytes % (0.0-12.0) % Eosinophils % (0.00-5.0) % Basophils % (0.0-0.4) % Absolute Granulocytes (1.4-6.9) Basophils # (0-0.4) Sodium (137-145) mmol/L Potassium (3.5-5.1) mmol/L Chloride (98-107) mmol/L Carbon Dioxide (22-30) mmol/L Anion Gap (5-15) MEQ/L BUN (7-17) mg/dL Creatinine (0.52-1.04) mg/dL Estimated GFR ML/MIN Glucose (74-106) mg/dL Calcium (8.4-10.2) mg/dL Total Bilirubin (0.2-1.3) mg/dL AST (14-36) U/L ALT (0-35) U/L Alkaline Phosphatase (38-126) U/L Troponin I < 0.012 (0.000-0.034) ng/mL Serum Total Protein (6.3-8.2) g/dL Albumin (3.5-5.0) g/dL Urine Color YELLOW (YELLOW) Urine Appearance SLIGHTLY CLOUDY (CLEAR) Urine pH 5.0 (5-6) Ur Specific [place] 1.028 (1.005-1.025) Urine Protein NEGATIVE (Negative) Urine Ketones NEGATIVE (NEGATIVE) Urine Blood NEGATIVE (0-5) Margarito/ul Urine Nitrite NEGATIVE (NEGATIVE) Urine Bilirubin NEGATIVE (NEGATIVE) Urine Urobilinogen NEGATIVE (0-1) mg/dL Ur Leukocyte Esterase LARGE (NEGATIVE) Urine WBC (Auto) 16-25 (0-5) /HPF Urine RBC (Auto) 3-5 (0-2) /HPF U Epithel Cells (Auto) RARE (FEW) /HPF Urine Bacteria (Auto) NONE (NEGATIVE) /HPF Urine Mucus (Auto) SLIGHT (NEGATIVE) /HPF Urine Culture Reflexed YES (NO) Urine Glucose NEGATIVE (NEGATIVE) mg/dL Urine Opiates Level NEGATIVE (NEGATIVE) Ur Methadone NEGATIVE (NEGATIVE) Urine Barbiturates NEGATIVE (NEGATIVE) Ur Phencyclidine (PCP) NEGATIVE (NEGATIVE) Urine Amphetamine NEGATIVE (NEGATIVE) U Benzodiazepine Level NEGATIVE (NEGATIVE) Urine Cocaine NEGATIVE (NEGATIVE) Urine Marijuana (THC) NEGATIVE (NEGATIVE) 12/04/18 12/04/18 12/04/18 Range/Units 03:01 02:49 02:49 WBC 6.1 (4.0-10.5) K/mm3 RBC 4.33 (4.1-5.4) M/mm3 Hgb 13.6 (12.0-16.0) gm/dl Hct 39.3 (35-47) % MCV 90.8 (78-100) fl MCH 31.4 (26-32) pg MCHC 34.6 (32-36) g/dl RDW 14.3 H (11.5-14.0) % Plt Count 225 (150-450) K/mm3 MPV 9.9 H (6-9.5) fl Gran % 74.5 H (36.0-66.0) % Eos # (Auto) 0.17 (0-0.5) Absolute Lymphs (auto) 0.89 L (1.0-4.6) Absolute Monos (auto) 0.47 (0.0-1.3) Lymphocytes % 14.5 L (24.0-44.0) % Monocytes % 7.7 (0.0-12.0) % Eosinophils % 2.8 (0.00-5.0) % Basophils % 0.5 (0.0-0.4) % Absolute Granulocytes 4.57 (1.4-6.9) Basophils # 0.03 (0-0.4) Sodium 140 (137-145) mmol/L Potassium 4.0 (3.5-5.1) mmol/L Chloride 116 H (98-107) mmol/L Carbon Dioxide 20 L (22-30) mmol/L Anion Gap 8.6 (5-15) MEQ/L BUN 14 (7-17) mg/dL Creatinine 0.69 (0.52-1.04) mg/dL Estimated GFR > 60.0 ML/MIN Glucose 110 H (74-106) mg/dL Calcium 8.4 (8.4-10.2) mg/dL Total Bilirubin 0.50 (0.2-1.3) mg/dL AST 33 (14-36) U/L ALT 26 (0-35) U/L Alkaline Phosphatase 92 (38-126) U/L Troponin I < 0.012 (0.000-0.034) ng/mL Serum Total Protein 5.5 L (6.3-8.2) g/dL Albumin 3.0 L (3.5-5.0) g/dL Urine Color (YELLOW) Urine Appearance (CLEAR) Urine pH (5-6) Ur Specific [place] (1.005-1.025) Urine Protein (Negative) Urine Ketones (NEGATIVE) Urine Blood (0-5) Margarito/ul Urine Nitrite (NEGATIVE) Urine Bilirubin (NEGATIVE) Urine Urobilinogen (0-1) mg/dL Ur Leukocyte Esterase (NEGATIVE) Urine WBC (Auto) (0-5) /HPF Urine RBC (Auto) (0-2) /HPF U Epithel Cells (Auto) (FEW) /HPF Urine Bacteria (Auto) (NEGATIVE) /HPF Urine Mucus (Auto) (NEGATIVE) /HPF Urine Culture Reflexed (NO) Urine Glucose (NEGATIVE) mg/dL Urine Opiates Level (NEGATIVE) Ur Methadone (NEGATIVE) Urine Barbiturates (NEGATIVE) Ur Phencyclidine (PCP) (NEGATIVE) Urine Amphetamine (NEGATIVE) U Benzodiazepine Level (NEGATIVE) Urine Cocaine (NEGATIVE) Urine Marijuana (THC) (NEGATIVE) - Progress Progress: improved Progress Note: 12/04/18 03:01 This is a 38-year-old white female with history of myocardial infarction, high blood pressure and seizures, fibromyalgia, rheumatoid arthritis, renal disease, bacterial endocarditis secondary to bath salts, left lower lobectomy Patient had been seen here in November secondary to seizure at that time patient apparently had stopped clonazepam which she had been on for quite some time. Patient was treated with Ativan sent back to the alf with clonazepam which she was able continued for approximately today she is also on Keppra. Patient apparently had formerly been on citalopram but had not been any since November also she had been on doxapin which she stopped on November 28. The patient was noted today at the alf to be sleeping when she began to class her arms across yourself magnus thought that she looks somewhat dusky patient had some clonic tonic activity which persisted approximately 2 minutes however as tonic-clonic activity stopped patient was able to talk to the magnus and [employer] telemetry on site manager that she had some chest pain Patient was not postictal she was alert after this seizure-like activity she had no urinary incontinence. On arrival patient is alert oriented x3. Patient's vitals are stable. Will go ahead and check CBC CMP prolactin level UA urine drug screen EKG and troponin. 12/04/18 06:02 Patient repeat troponin within normal limits patient with no further seizure activity. Patient does have a positive urinary tract infection improved but not completely cleared from last visit. Will place patient on Bactrim DS one orally twice a day for 10 days. Patient to return to alf no [place] no hazardous activity no driving. Patient to followup with alf doctor. Continue current medications - Departure Departure Disposition: [facility]/Correction Clinical Impression: Seizure, Non-cardiac chest pain UTI (urinary tract infection) Qualifiers: Urinary tract infection type: site unspecified Hematuria presence: without hematuria Qualified Code(s): N39.0 - Urinary tract infection, site not specified Condition: Fair Critical Care Time: No Referrals: MIRANDA ETIENNE [Primary Care Provider] - Additional Instructions: Return to alf. No [place] no hazardous activity take showers instead of baths. Continue current medications. Bactrim DS one orally twice a day for 10 days. Followup with the alf doctor. Return for acute distress or for severe symptoms. Prescriptions: Smz/Tmp Ds Tablet [Bactrim Ds Tablet] 1 udtab PO BID #20 tablet
[2018-12-04 03:10] LABS: ALKALINE PHOSPHATASE 92 U/L (38-126); ANION GAP 8.6 MEQ/L (5-15); BLOOD UREA NITROGEN 14 mg/dL (7-17); CHLORIDE 116 mmol/L (98-107); Calcium 8.4 mg/dL (8.4-10.2); Carbon Dioxide 20 mmol/L (22-30); Creatinine 1 0.69 mg/dL (0.52-1.04); Glucose 110 mg/dL (74-106); SGOT/AST 33 U/L (14-36); SGPT/ALT 26 U/L (0-35); SODIUM 140 mmol/L (137-145); Total Protein 5.5 g/dL (6.3-8.2)
[2018-12-04 03:22] LABS: Appearance SLIGHTLY CLOUDY (CLEAR); Bilirubin NEGATIVE (NEGATIVE); Blood NEGATIVE Ery/ul (0-5); Epithelial Cells RARE /HPF (FEW); Glucose NEGATIVE (NEGATIVE); Ketones NEGATIVE (NEGATIVE); Leukocyte Esterase LARGE (NEGATIVE); Mucus SLIGHT /HPF (NEGATIVE); Nitrite NEGATIVE (NEGATIVE); Protein,Urine Dip NEGATIVE (Negative); Specific Gravity 1.028 (1.005-1.025); Urobilinogen NEGATIVE mg/dL (0-1)
[2018-12-04 03:34] LABS: Amphetamine,Urine NEGATIVE (NEGATIVE); Barbiturate,Urine NEGATIVE (NEGATIVE); Benzodiazepine,Urine NEGATIVE (NEGATIVE); Cocaine,Urine NEGATIVE (NEGATIVE); Methadone,Urine NEGATIVE (NEGATIVE); Opiate,Urine NEGATIVE (NEGATIVE); PCP,Urine NEGATIVE (NEGATIVE); THC,Urine NEGATIVE (NEGATIVE)
[2018-12-04] MEDS ORDERED: BABY ASPIRIN 81 MG CHEW PO ONE (03:53)
[2018-12-04 05:15] VITALS: PULSE 52
[2018-12-04] MEDS ORDERED: BACTRIM DS TABLET PO ONE ×2 (06:01→06:09)
[2018-12-04 06:15] VITALS: BP 105/64; O2SAT 95
[2018-12-05 10:38] LABS: PROLACTIN 12.5 ng/mL (4.7-23.3)
== END 2018-12-04 06:39 | disposition home or self-care (01) ==
LOC: ED 02:02
DX: G40.909 Epilepsy, unspecified, not intractable, without status epilepticus (principal); R07.89 Other chest pain; N39.0 Urinary tract infection, site not specified
CPT/HCPCS: 36000; 36415; 80053; 80177; 80307; 81001; 84146; 84484; 85025; 87077; 87086; 87186; 93005; 96360; 99284; A9270-GY

== ENCOUNTER 2018-12-14 02:08 | Emergency (ER) | payer MEDICAID ==
[2018-12-14 02:35] LABS: BASOPHIL % 0.3 % (0.0-0.4); Basophil (Absolute #) 0.02 (0-0.4); Eosinophil % 2.2 % (0.00-5.0); Eosinophil (Absolute #) 0.14 (0-0.5); Granulocytes % 77.4 % (36.0-66.0); Lymphocyte (Absolute #) 0.75 (1.0-4.6); Lymphocytes % 11.6 % (24.0-44.0); Mean Cell Volume 92.8 fl (78-100); Mean Corpuscular Hemoglobin 31.7 pg (26-32); Mean Corpuscular Hgb Concent. 34.1 g/dl (32-36); Mean Platelet Volume 10.6 fl (6-9.5); Monocyte (Absolute #) 0.55 (0.0-1.3); Monocytes % 8.5 % (0.0-12.0); Platelet Count 192 K/mm3 (150-450); Red Blood Count 4.42 M/mm3 (4.1-5.4); Red Cell Distribution Width 14.1 % (11.5-14.0); White Blood Count 6.5 K/mm3 (4.0-10.5)
[2018-12-14 02:46] LABS: ALBUMIN 2.9 g/dL (3.5-5.0); ALKALINE PHOSPHATASE 104 U/L (38-126); ANION GAP 7.5 MEQ/L (5-15); BLOOD UREA NITROGEN 15 mg/dL (7-17); CHLORIDE 112 mmol/L (98-107); Calcium 8.1 mg/dL (8.4-10.2); Carbon Dioxide 23 mmol/L (22-30); Creatinine 1 0.68 mg/dL (0.52-1.04); Glucose 95 mg/dL (74-106); Potassium 3.5 mmol/L (3.5-5.1); SGOT/AST 24 U/L (14-36); SGPT/ALT 27 U/L (0-35); SODIUM 140 mmol/L (137-145); Total Protein 5.2 g/dL (6.3-8.2)
[2018-12-14 03:28] LABS: Appearance SLIGHTLY CLOUDY (CLEAR); Bilirubin NEGATIVE (NEGATIVE); Blood NEGATIVE Ery/ul (0-5); Epithelial Cells RARE /HPF (FEW); Glucose NEGATIVE (NEGATIVE); Ketones NEGATIVE (NEGATIVE); Leukocyte Esterase SMALL (NEGATIVE); Mucus SLIGHT /HPF (NEGATIVE); Nitrite NEGATIVE (NEGATIVE); Protein,Urine Dip NEGATIVE (Negative); RBC 0-2 /HPF (0-2); Specific Gravity 1.024 (1.005-1.025); Urobilinogen 2 mg/dL (0-1)
[2018-12-14 03:29] LABS: Bacteria NONE SEEN /HPF (NEGATIVE)
--- NOTE | 2018-12-14 03:37 | ERPHSYRPT ---
- History of Present Illness Time Seen by Provider: 12/14/18 03:35 Source: patient, police Exam Limitations: no limitations Patient Subjective Stated Complaint: pt is alert and oriented. pt is ambulatory with a steady gait. pt comes in from [facility] after having a seizure. pt states that she was on the floor when she had the seizure and "hit her head so hard she saw stars." pt is speaking easily and clearly. pt breathing easily. pt complaint of pain in her left jaw and head. pt PERRLA. no distress noted. Triage Nursing Assessment: see above Physician History: pt comes in from [facility] after having a seizure. patient states that she was on the floor when she had the seizure and "hit her head so hard she saw stars." pt is speaking easily and clearly. pt breathing easily. She complaint of pain in her left jaw and head. Timing/Duration: today Character of Deficits: none Deficits: no difficulties Baseline/Normal Cognition: alert oriented x 3 Current Cognition: alert oriented x 3 Associated Symptoms: headache Allergies/Adverse Reactions: citalopram [From Celexa] Allergy (Verified 12/04/18 02:20) paroxetine HCl [From Paxil] Allergy (Verified 12/04/18 02:20) Penicillins Allergy (Verified 12/04/18 02:20) Home Medications: Aspirin EC 81 mg [Ecotrin 81 mg] 81 mg PO DAILY 06/25/17 [History] Ibuprofen 600 mg PO BID PRN 06/25/17 [History] Levetiracetam [Keppra] 1,000 mg PO BID 06/25/17 [History] Escitalopram Oxalate 10 mg [Lexapro 10 MG] 20 mg PO DAILY 11/20/18 [History] clonazePAM [Klonopin] 1 mg PO TID 11/20/18 [History] Hx Tetanus, Diphtheria Vaccination/Date Given: Yes (2013) Hx Influenza Vaccination/Date Given: No (2013) Hx Pneumococcal Vaccination/Date Given: Yes (2013) Immunizations Up to Date: Yes - Review of Systems Constitutional: No Fever, No Chills Eyes: No Symptoms Ears, Nose, & Throat: No Symptoms Respiratory: No Cough, No Dyspnea Cardiac: No Chest Pain, No Edema, No Syncope Abdominal/Gastrointestinal: No Abdominal Pain, No Nausea, No Vomiting, No Diarrhea Genitourinary Symptoms: No Dysuria Musculoskeletal: No Back Pain, No Neck Pain Skin: No Rash Neurological: No Dizziness, No Focal Weakness, No Sensory Changes Psychological: No Symptoms Endocrine: No Symptoms All Other Systems: Reviewed and Negative - Past Medical History Pertinent Past Medical History: Yes Neurological History: Seizures ENT History: No Pertinent History Cardiac History: Hypertension, Myocardial Infarction ([place]), Other Respiratory History: No Pertinent History Endocrine Medical History: No Pertinent History Musculoskeletal History: Fibromyalgia, Rheumatoid Arthritis GI Medical History: No Pertinent History History: Renal Disease, Other Psycho-Social History: Other Female Reproductive Disorders: No Pertinent History Other Medical History: 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 LEFT LOWER LOBECTOMY. sweets syndrome - Past Surgical History Past Surgical History: Yes Neuro Surgical History: No Pertinent History Cardiac: No Pertinent History Respiratory: No Pertinent History Gastrointestinal: No Pertinent History Genitourinary: Other Female Surgical History: Hysterectomy, Tubal Ligation Other Surgical History: D&C. LEFT LOWER LOBECTOMY. triple valve replacement - Social History Smoking Status: Former smoker How long have you smoked: 15 Exposure to second hand smoke: No Drug Use: none Patient Lives Alone: No (fpc) - Female History Hx Now: No - Nursing Vital Signs Nursing Vital Signs: Initial Vital Signs Temperature 97.4 F 12/14/18 02:11 Pulse Rate 62 12/14/18 02:11 Respiratory Rate 18 12/14/18 02:11 Blood Pressure 116/93 12/14/18 02:11 O2 Sat by Pulse Oximetry 97 12/14/18 02:11 Pain Scale Pain Intensity 9 - [place] Coma Scale Best Eye Response (Yamilex): (4) open spontaneously Best Verbal Response (Yamilex): (5) oriented Best Motor Response (Yamilex): (6) obeys commands [place] Total: 15 - Physical Exam General Appearance: no apparent distress, alert Eye Exam: bilateral eye: PERRL, EOMI Ears, Nose, Throat Exam: normal ENT inspection, moist mucous membranes Neck Exam: normal inspection, non-tender, supple Respiratory: normal breath sounds, lungs clear, airway intact, No respiratory distress Cardiovascular: regular rate/rhythm, No edema Gastrointestinal: soft, No tenderness, No distention Back Exam: normal inspection Extremity Exam: normal inspection, No pedal edema Mental Status: alert, oriented x 3 inspector 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 Exam: tongue midline Coordination/Gait: normal finger to nose, normal gait Skin Exam: normal color, warm, dry, No rash SpO2: 97 - Course Nursing assessment & vital signs reviewed: Yes - CT Exams Head CT Interpretation: Tele-radiologist Report, No/Intracranial Hemorrhag Ordered Tests: Active Orders 24 hr Category Date Time Status HEAD WITHOUT CONTRAST [CT] Stat Exams 12/14/18 02:14 Taken CBC W DIFF Stat Lab 12/14/18 02:31 Completed CMP Stat Lab 12/14/18 02:31 Completed CULTURE,URINE Stat Lab 12/14/18 03:19 Received Lactic Acid Stat Lab 12/14/18 02:25 Completed UA W/RFX UR CULTURE Stat Lab 12/14/18 03:19 Completed Medication Summary Discontinued Medications Generic Name Dose Route Start Last Admin Trade Name Freq PRN Reason Stop Dose Admin Ciprofloxacin 500 mg 12/14/18 03:39 Cipro 500 Mg PO 12/14/18 03:40 BID STA Lab/Rad Data: Laboratory Result Diagrams 12/14/18 02:31 12/14/18 02:31 Laboratory Results 12/14/18 12/14/18 12/14/18 Range/Units 03:19 02:31 02:31 WBC 6.5 (4.0-10.5) K/mm3 RBC 4.42 (4.1-5.4) M/mm3 Hgb 14.0 (12.0-16.0) gm/dl Hct 41.0 (35-47) % MCV 92.8 (78-100) fl MCH 31.7 (26-32) pg MCHC 34.1 (32-36) g/dl RDW 14.1 H (11.5-14.0) % Plt Count 192 (150-450) K/mm3 MPV 10.6 H (6-9.5) fl Gran % 77.4 H (36.0-66.0) % Eos # (Auto) 0.14 (0-0.5) Absolute Lymphs (auto) 0.75 L (1.0-4.6) Absolute Monos (auto) 0.55 (0.0-1.3) Lymphocytes % 11.6 L (24.0-44.0) % Monocytes % 8.5 (0.0-12.0) % Eosinophils % 2.2 (0.00-5.0) % Basophils % 0.3 (0.0-0.4) % Absolute Granulocytes 5.00 (1.4-6.9) Basophils # 0.02 (0-0.4) Sodium 140 (137-145) mmol/L Potassium 3.5 (3.5-5.1) mmol/L Chloride 112 H (98-107) mmol/L Carbon Dioxide 23 (22-30) mmol/L Anion Gap 7.5 (5-15) MEQ/L BUN 15 (7-17) mg/dL Creatinine 0.68 (0.52-1.04) mg/dL Estimated GFR > 60.0 ML/MIN Glucose 95 (74-106) mg/dL Lactic Acid (0.4-2.0) Calcium 8.1 L (8.4-10.2) mg/dL Total Bilirubin 0.50 (0.2-1.3) mg/dL AST 24 (14-36) U/L ALT 27 (0-35) U/L Alkaline Phosphatase 104 (38-126) U/L Serum Total Protein 5.2 L (6.3-8.2) g/dL Albumin 2.9 L (3.5-5.0) g/dL Urine Color YELLOW (YELLOW) Urine Appearance SLIGHTLY CLOUDY (CLEAR) Urine pH 5.0 (5-6) Ur Specific [place] 1.024 (1.005-1.025) Urine Protein NEGATIVE (Negative) Urine Ketones NEGATIVE (NEGATIVE) Urine Blood NEGATIVE (0-5) [place]/ul Urine Nitrite NEGATIVE (NEGATIVE) Urine Bilirubin NEGATIVE (NEGATIVE) Urine Urobilinogen 2 (0-1) mg/dL Ur Leukocyte Esterase SMALL (NEGATIVE) Urine WBC (Auto) 16-25 (0-5) /HPF Urine RBC (Auto) 0-2 (0-2) /HPF U Epithel Cells (Auto) RARE (FEW) /HPF Urine Bacteria (Auto) NONE SEEN (NEGATIVE) /HPF Urine Mucus (Auto) SLIGHT (NEGATIVE) /HPF Urine Culture Reflexed YES (NO) Urine Glucose NEGATIVE (NEGATIVE) mg/dL 12/14/18 Range/Units 02:25 WBC (4.0-10.5) K/mm3 RBC (4.1-5.4) M/mm3 Hgb (12.0-16.0) gm/dl Hct (35-47) % MCV (78-100) fl MCH (26-32) pg MCHC (32-36) g/dl RDW (11.5-14.0) % Plt Count (150-450) K/mm3 MPV (6-9.5) fl Gran % (36.0-66.0) % Eos # (Auto) (0-0.5) Absolute Lymphs (auto) (1.0-4.6) Absolute Monos (auto) (0.0-1.3) Lymphocytes % (24.0-44.0) % Monocytes % (0.0-12.0) % Eosinophils % (0.00-5.0) % Basophils % (0.0-0.4) % Absolute Granulocytes (1.4-6.9) Basophils # (0-0.4) Sodium (137-145) mmol/L Potassium (3.5-5.1) mmol/L Chloride (98-107) mmol/L Carbon Dioxide (22-30) mmol/L Anion Gap (5-15) MEQ/L BUN (7-17) mg/dL Creatinine (0.52-1.04) mg/dL Estimated GFR ML/MIN Glucose (74-106) mg/dL Lactic Acid 1.3 (0.4-2.0) Calcium (8.4-10.2) mg/dL Total Bilirubin (0.2-1.3) mg/dL AST (14-36) U/L ALT (0-35) U/L Alkaline Phosphatase (38-126) U/L Serum Total Protein (6.3-8.2) g/dL Albumin (3.5-5.0) g/dL Urine Color (YELLOW) Urine Appearance (CLEAR) Urine pH (5-6) Ur Specific [place] (1.005-1.025) Urine Protein (Negative) Urine Ketones (NEGATIVE) Urine Blood (0-5) Margar[place]/ul Urine Nitrite (NEGATIVE) Urine Bilirubin (NEGATIVE) Urine Urobilinogen (0-1) mg/dL Ur Leukocyte Esterase (NEGATIVE) Urine WBC (Auto) (0-5) /HPF Urine RBC (Auto) (0-2) /HPF U Epithel Cells (Auto) (FEW) /HPF Urine Bacteria (Auto) (NEGATIVE) /HPF Urine Mucus (Auto) (NEGATIVE) /HPF Urine Culture Reflexed (NO) Urine Glucose (NEGATIVE) mg/dL - Progress Progress: improved Counseled pt/family regarding: lab results, diagnosis, need for follow-up, rad results - Departure Departure Disposition: [facility]/Long-Term Clinical Impression: Seizure UTI (urinary tract infection) Qualifiers: Urinary tract infection type: acute cystitis Hematuria presence: without hematuria Qualified Code(s): N30.00 - Acute cystitis without hematuria Condition: Stable Critical Care Time: Yes Critical Care Time(excluding separately billable procedures): 30-74 minutes Referrals: MIARNDA ETIENNE [Primary Care Provider] - Instructions: Seizures, Adult (DC), Urinary Tract Infection, Adult (DC) Additional Instructions: Discharge/Care Plan KAELYN FLOYD was seen on 12/14/18 in the Emergency Room. The patient was counseled regarding Diagnosis,Lab results, Imaging studies, need for follow up and when to return to the Emergency Room. Prescriptions given: Discharge Note I have spoken with the patient and/or caregivers. I have explained the patient' s condition, diagnosis and treatment plan based on the information available to me at this time. I have answered the patient's and/or caregiver's questions and addressed any concerns. The patient and/or caregivers have as good understanding of the patient's diagnosis, condition and treatment plan as can be expected at this point. The vital signs have been stable. The patient's condition is stable and appropriate for discharge from the emergency department. The patient will pursue further outpatient evaluation with the primary care physician or other designated or consulting physician as outlined in the discharge instructions. The patient and/or caregivers are agreeable to this plan of care and follow-up instructions have been explained in detail. The patient and/or caregivers have received these instruction. The patient/and or caregivers are aware that any significant change in condition or worsening of symptoms should prompt an immediate return to this or the closest emergency department or call 911. Prescriptions: Ciprofloxacin [Cipro 500 MG] 500 mg PO BIDAC #14 tablet
[2018-12-14] MEDS ORDERED: Cipro 500 MG PO STA (03:39)
[2018-12-14] MEDS ORDERED: Cipro 500 MG ONE (03:42)
[2018-12-14] MEDS ORDERED: NAPROSYN 375 MG PO STA (03:42)
[2018-12-14 03:58] VITALS: BP 106/71; PULSE 71; O2SAT 94
--- NOTE | 2018-12-14 08:51 | XRAY ---
Indication: Posterior head injury following seizure. Multiple contiguous axial images obtained through the head without contrast. Comparison: December 02, 2016. Again normal appearing brain parenchyma, ventricles, and bony calvarium. Visualized paranasal sinuses and mastoid air cells are clear. There remains mild TMJ degenerative changes bilaterally. Impression: Stable normal CT head without contrast exam. Comment: Preliminary interpretation was made by [facility]. No critical discrepancy. CTDI 51.96
== END 2018-12-14 03:59 | disposition home or self-care (01) ==
LOC: ED 02:08
DX: R56.9 Unspecified convulsions (principal); N30.00 Acute cystitis without hematuria
CPT/HCPCS: 36415; 70450; 80053; 81001; 83605; 85025; 87086; 99284; A9270-GY

== ENCOUNTER 2019-11-09 21:38 | Emergency (ER) | payer MEDICAID ==
[2019-11-09] MEDS ORDERED: Lanoxin 0.5 MG/2 ML INJECTION IV ONE (21:58)
[2019-11-09] MEDS ORDERED: BABY ASPIRIN 81 MG CHEW PO ONE (22:00)
[2019-11-09] MEDS ORDERED: Sodium Chloride 0.9% 1000 ML 1,000 ML IV STA (22:00)
[2019-11-09 22:19] VITALS: O2SAT 94
[2019-11-09] MEDS ORDERED: Sodium Chloride 0.9% 1000 ML 1,000 ML ONE (22:31)
[2019-11-09] MEDS ORDERED: Lanoxin 0.5 MG/2 ML INJECTION ONE (22:31)
[2019-11-09] MEDS ORDERED: BABY ASPIRIN 81 MG CHEW ONE (22:31)
--- NOTE | 2019-11-09 22:35 | ERPHSYRPT ---
- History of Present Illness Time Seen by Provider: 11/09/19 21:48 Historian: patient Exam Limitations: no limitations Patient Subjective Stated Complaint: pt states that the last 2 weeks she has been having increase in edema, more shortness of breath, pt states that since this morning she has gained 6lbs, pt states that she has hx of heart attack and mitral valve replacement, pt states she has been having difficulty with moving around the house without getting short of breath, pt states that she did 3 lines of meth on sunday, pt states that 3 days ago she had a fever of 102.1, pt states that she took tylenol and has not had a fever since Triage Nursing Assessment: pt ambulated into the er, pt is axo x3, pt is SOB, pt has generalized pitting edema, BLE 4+ pitting edema, clear irregular heart tones, wheezing lung sounds, tachycardic, dry hacking cough, reddness to BLE, weak pulses in upper and lower extremities Physician History: This is a 39-year-old patient presented to the ED for evaluation of chest pain for the past 3 weeks -That she has a history of mitral valve replacement, endocarditis , IV drug ab use and a myocardial infarction few years ago -She reports that over the past 3 weeks she developed shortness of breath, increasing swelling of her entire body, intermittent chest pain-states she had seen her primary care physician a week ago who advised her to come to the ED for evaluation but she was stubborn and did not want to come in -Patient states that 3 days ago she had a fever with a T-max of 102-she has taken Tylenol but has not had fever since then - denies h/o CHF -Start she has had atrial fibrillation before which responded only to cardioversion and is only on aspirin -Patient states that she developed intermittent chest pain for the past 3 weeks located mostly on the left side-5/10, dull pain,no remitting or relieving factors, nonradiating -Reports using 3 lines of meth 3 days ago Timing/Duration: today Activities at Onset: none Quality: aching Location: central Chest Pain Radiation: no radiation Severity of Pain-Max: mild Severity of Pain-Current: mild Modifying Factors: Improves With: nothing Associated Symptoms: shortness of breath, No nausea, No vomiting, No palpitations, No heartburn, No cough, No chills, No fever, No fatigue, No weakness Prior Chest Pain/Cardiac Workup: heart attack Aspirin Treatment Today: 81 mg x 4 Allergies/Adverse Reactions: citalopram [From Celexa] Allergy (Verified 11/09/19 22:19) paroxetine HCl [From Paxil] Allergy (Verified 11/09/19 22:19) Penicillins Allergy (Verified 11/09/19 22:19) Home Medications: Aspirin EC 81 mg [Ecotrin 81 mg] 81 mg PO DAILY 06/25/17 [History] Levetiracetam [Keppra] 1,000 mg PO BID 06/25/17 [History] clonazePAM [Klonopin] 1 mg PO TID 11/20/18 [History] Furosemide 20 mg [Lasix 20 mg] 20 mg PO DAILY 11/09/19 [History] Potassium Chloride [K-Dur] 20 meq PO DAILY 11/09/19 [History] Hx Tetanus, Diphtheria Vaccination/Date Given: Yes Hx Influenza Vaccination/Date Given: No Hx Pneumococcal Vaccination/Date Given: No Travel Risk - International Travel Have you traveled outside of the country in past 3 weeks: No - Coronavirus Screening Are you exhibiting any of the following symptoms?: No Close contact with a COVID-19 positive Pt in past 14-21 Days: Yes - Review of Systems Constitutional: No Symptoms Eyes: No Symptoms Ears, Nose, & Throat: No Symptoms Respiratory: No Symptoms, Dyspnea on Exertion (GRANT) Cardiac: Chest Pain Abdominal/Gastrointestinal: No Symptoms Genitourinary Symptoms: No Symptoms Musculoskeletal: No Symptoms Skin: No Symptoms Neurological: No Symptoms Psychological: No Symptoms Endocrine: No Symptoms All Other Systems: Reviewed and Negative - Past Medical History Pertinent Past Medical History: Yes Neurological History: Seizures ENT History: No Pertinent History Cardiac History: Arrhythmia, Hypertension, Myocardial Infarction ([place]), Other Respiratory History: No Pertinent History Endocrine Medical History: No Pertinent History Musculoskeletal History: Fibromyalgia, Rheumatoid Arthritis GI Medical History: No Pertinent History History: Renal Disease, Other Psycho-Social History: Other Female Reproductive Disorders: No Pertinent History Other Medical History: 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 LEFT LOWER LOBECTOMY. sweets syndrome. mitral valve replacement 2013 - Past Surgical History Past Surgical History: Yes Neuro Surgical History: No Pertinent History Cardiac: Valve Replacement Respiratory: No Pertinent History Gastrointestinal: No Pertinent History Genitourinary: Other Female Surgical History: Hysterectomy, Tubal Ligation Other Surgical History: D&C. LEFT LOWER LOBECTOMY. triple valve replacement - Social History Smoking Status: Current every day smoker How long have you smoked: 22 Exposure to second hand smoke: Yes Drug Use: methamphetamines Patient Lives Alone: No - Female History Hx Now: No - Nursing Vital Signs Nursing Vital Signs: Initial Vital Signs Respiratory Rate 12 11/09/19 21:39 Blood Pressure 116/96 11/09/19 21:39 O2 Sat by Pulse Oximetry 94 L 11/09/19 21:39 Pain Scale Pain Intensity 7 - Physical Exam General Appearance: no apparent distress Eye Exam: PERRL/EOMI, eyes nml inspection Ears, Nose, Throat Exam: normal ENT inspection, TMs normal, pharynx normal, moist mucous membranes Neck Exam: normal inspection, non-tender, supple, full range of motion Respiratory Exam: normal breath sounds, lungs clear, No accessory muscle use (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 tested Skin Exam: normal color Lymphatic Exam: No adenopathy SpO2 Interpretation: normal SpO2: 94 O2 Delivery: Room Air - Course EKG Interpreted by Me: A-fib, NORMAL AXIS, NORMAL INTERVALS, NORMAL QRS Rhythm Strip: Atrial Fibrillation Ordered Tests: Active Orders 24 hr Category Date Time Status EKG-ER Only STAT Care 11/09/19 22:00 Active IV Insertion STAT Care 11/09/19 22:00 Active CHEST 1 VIEW (PORTABLE) Stat Exams 11/09/19 22:01 Taken CBC W DIFF Stat Lab 11/09/19 22:40 Completed CK-Creatinine Phosphokinase Stat Lab 11/09/19 22:40 Completed CMP Stat Lab 11/09/19 22:40 Completed HCG QUALITATIVE,SERUM Stat Lab 11/09/19 22:40 Completed NT PRO BNP Stat Lab 11/09/19 22:40 Completed TROPONIN Q3H Lab 11/09/19 22:40 Completed TROPONIN Q3H Lab 11/10/19 01:15 Ordered TROPONIN Q3H Lab 11/10/19 04:15 Ordered TROPONIN Q3H Lab 11/10/19 07:15 Ordered TROPONIN Q3H Lab 11/10/19 10:15 Ordered UA W/RFX UR CULTURE Stat Lab 11/09/19 22:01 Uncollected Urine Triage Profile Stat Lab 11/09/19 22:01 Uncollected Medication Summary Discontinued Medications Generic Name Dose Route Start Last Admin Trade Name [place] PRN Reason Stop Dose Admin Aspirin 324 mg 11/09/19 22:00 11/09/19 22:36 Baby Aspirin 81 Mg Chew PO 11/09/19 22:01 324 mg STAT ONE Administration Aspirin Confirm 11/09/19 22:31 Baby Aspirin 81 Mg Chew Administered 11/09/19 22:32 Dose 324 mg .ROUTE .STK-MED ONE Digoxin 0.5 mg 11/09/19 21:58 11/09/19 22:37 Lanoxin 0.5 Mg/2 Ml Injection IV 11/09/19 21:59 0.5 mg STAT ONE Administration Digoxin Confirm 11/09/19 22:31 Lanoxin 0.5 Mg/2 Ml Injection Administered 11/09/19 22:32 Dose 0.5 mg .ROUTE .STK-MED ONE Diltiazem HCl 10 mg 11/09/19 22:52 11/09/19 22:54 Cardizem Iv 50 Mg/10 Ml IV 11/09/19 22:53 10 mg STAT ONE Administration Diltiazem HCl Confirm 11/09/19 22:54 Cardizem Iv 50 Mg/10 Ml Administered 11/09/19 22:55 Dose 50 mg IV .STK-MED ONE Sodium Chloride 1,000 mls @ 999 mls/hr 11/09/19 22:00 11/09/19 22:36 Sodium Chloride 0.9% 1000 Ml IV 11/09/19 23:00 999 mls/hr .Q1H1M STA Administration Sodium Chloride Confirm 11/09/19 22:31 Sodium Chloride 0.9% 1000 Ml Administered 11/09/19 22:32 Dose 1,000 mls @ ud .ROUTE .STK-MED ONE Lab/Rad Data: Laboratory Result Diagrams 11/09/19 22:40 11/09/19 22:40 Laboratory Results 11/09/19 11/09/19 11/09/19 Range/Units 22:40 22:40 22:40 WBC (4.0-10.5) K/mm3 RBC (4.1-5.4) M/mm3 Hgb (12.0-16.0) gm/dl Hct (35-47) % MCV (78-100) fl MCH (26-32) pg MCHC (32-36) g/dl RDW (11.5-14.0) % Plt Count (150-450) K/mm3 MPV (7.5-11.0) fl Gran % (36.0-66.0) % Eos # (Auto) (0-0.5) Absolute Lymphs (auto) (1.0-4.6) Absolute Monos (auto) (0.0-1.3) Lymphocytes % (24.0-44.0) % Monocytes % (0.0-12.0) % Eosinophils % (0.00-5.0) % Basophils % (0.0-0.4) % Absolute Granulocytes (1.4-6.9) Basophils # (0-0.4) Sodium 137 (137-145) mmol/L Potassium 3.2 L (3.5-5.1) mmol/L Chloride 110 H (98-107) mmol/L Carbon Dioxide 25 (22-30) mmol/L Anion Gap 5.0 (5-15) MEQ/L BUN 11 (7-17) mg/dL Creatinine 0.74 (0.52-1.04) mg/dL Estimated GFR > 60.0 ML/MIN Glucose 77 (74-106) mg/dL Calcium 7.5 L (8.4-10.2) mg/dL Total Bilirubin 0.40 (0.2-1.3) mg/dL AST 28 (14-36) U/L ALT 18 (0-35) U/L Alkaline Phosphatase 150 H (38-126) U/L Creatine Kinase 96 (30-135) U/L Troponin I < 0.012 (0.000-0.034) ng/mL NT-Pro-B Natriuret Pep 446 (0-450) pg/mL Serum Total Protein 4.3 L (6.3-8.2) g/dL Albumin 2.0 L (3.5-5.0) g/dL Serum , Qual NEGATIVE (Negative) 11/09/19 Range/Units 22:40 WBC 7.4 (4.0-10.5) K/mm3 RBC 5.07 (4.1-5.4) M/mm3 Hgb 14.9 (12.0-16.0) gm/dl Hct 46.8 (35-47) % MCV 92.3 (78-100) fl MCH 29.4 (26-32) pg MCHC 31.8 L (32-36) g/dl RDW 14.9 H (11.5-14.0) % Plt Count 317 (150-450) K/mm3 MPV 10.4 (7.5-11.0) fl Gran % 82.1 H (36.0-66.0) % Eos # (Auto) 0.22 (0-0.5) Absolute Lymphs (auto) 0.52 L (1.0-4.6) Absolute Monos (auto) 0.55 (0.0-1.3) Lymphocytes % 7.1 L (24.0-44.0) % Monocytes % 7.5 (0.0-12.0) % Eosinophils % 3.0 (0.00-5.0) % Basophils % 0.3 (0.0-0.4) % Absolute Granulocytes 6.05 (1.4-6.9) Basophils # 0.02 (0-0.4) Sodium (137-145) mmol/L Potassium (3.5-5.1) mmol/L Chloride (98-107) mmol/L Carbon Dioxide (22-30) mmol/L Anion Gap (5-15) MEQ/L BUN (7-17) mg/dL Creatinine (0.52-1.04) mg/dL Estimated GFR ML/MIN Glucose (74-106) mg/dL Calcium (8.4-10.2) mg/dL Total Bilirubin (0.2-1.3) mg/dL AST (14-36) U/L ALT (0-35) U/L Alkaline Phosphatase (38-126) U/L Creatine Kinase (30-135) U/L Troponin I (0.000-0.034) ng/mL NT-Pro-B Natriuret Pep (0-450) pg/mL Serum Total Protein (6.3-8.2) g/dL Albumin (3.5-5.0) g/dL Serum , Qual (Negative) - Progress Progress Note: 11/09/19 22:54 There is a 39-year-old presenting to the ED for evaluation of chest pain and shortness of breath Examination shows diffuse anasarca EEG shows evidence of atrial fibrillation-initially her blood pressure was 116/96-hence 250 mcg of digoxin was tried-complained of worsening shortness of breath and chest pain following which the digoxin was stopped. By this time patient received some IV fluids and her blood pressure to 124/86- This 10 mg of Cardizem was given-language the patient became hypotensive, IV fluids were given at a slow rate which improved the blood pressure Workup Labs: CBC, CMP, troponins, BNP, CPK, hcg,UA, UDS Results:CMP reveals hypokalemia with potassium 3.2- added 20mEq KCl to IVF, Ca 7.5, ALP 150. All other labs WNL including troponins. UA and UDS pending Imaging CXR possible pulmonary edema, no infiltrate Medications given -Digoxin, cardizem , IVF at 100 Cc, 324 aspirin 11/09/19 23:45 Patient's atrial fibrillation is refractory to medical therapy. Currently her blood pressure is 100 / 76, think she will tolerate IV amiodarone at this time, transfer to a higher center for cardioversion. Robi case with Dr. Baron at [facility] who has agreed to take over further care Patient will be transferred for refractory atrial fibrillation, anasarca, as of breath and chest pain 11/09/19 23:51 - Departure Departure Disposition: Transfer Clinical Impression: Atrial fibrillation with RVR, Anasarca, SOB (shortness of breath), Chest pain Clinical Impression: (Ruled Out): Atrial fibrillation Condition: Good Critical Care Time: Yes Critical Care Time(excluding separately billable procedures): Critical 30-74 mins Referrals: [facility] [Primary Care Provider] -
[2019-11-09] MEDS ORDERED: Cardizem IV 50 MG/10 ML IV ONE ×2 (22:52→22:54)
[2019-11-09 23:13] VITALS: BP 108/94; PULSE 145
[2019-11-09 23:17] LABS: Absolute Neutrophil Ct (ANC) 6.05 (1.4-6.9); BASOPHIL % 0.3 % (0.0-0.4); Basophil (Absolute #) 0.02 (0-0.4); Eosinophil (Absolute #) 0.22 (0-0.5); Hematocrit 46.8 % (35-47); Hemoglobin 14.9 gm/dl (12.0-16.0); Lymphocyte (Absolute #) 0.52 (1.0-4.6); Lymphocytes % 7.1 % (24.0-44.0); Mean Cell Volume 92.3 fl (78-100); Mean Corpuscular Hemoglobin 29.4 pg (26-32); Mean Corpuscular Hgb Concent. 31.8 g/dl (32-36); Mean Platelet Volume 10.4 fl (7.5-11.0); Monocyte (Absolute #) 0.55 (0.0-1.3); Monocytes % 7.5 % (0.0-12.0); Neutrophil % 82.1 % (36.0-66.0); Platelet Count 317 K/mm3 (150-450); Red Blood Count 5.07 M/mm3 (4.1-5.4); Red Cell Distribution Width 14.9 % (11.5-14.0); White Blood Count 7.4 K/mm3 (4.0-10.5)
[2019-11-09 23:36] LABS: ALKALINE PHOSPHATASE 150 U/L (38-126); BLOOD UREA NITROGEN 11 mg/dL (7-17); CHLORIDE 110 mmol/L (98-107); CK-Creatinine Phosphokinase 96 U/L (30-135); Calcium 7.5 mg/dL (8.4-10.2); Carbon Dioxide 25 mmol/L (22-30); Creatinine 1 0.74 mg/dL (0.52-1.04); Glucose 77 mg/dL (74-106); NT PRO BNP 446 pg/mL (0-450); Potassium 3.2 mmol/L (3.5-5.1); SGOT/AST 28 U/L (14-36); SGPT/ALT 18 U/L (0-35); SODIUM 137 mmol/L (137-145); Total Protein 4.3 g/dL (6.3-8.2)
[2019-11-10 00:53] LABS: Slide Review 1 YES
--- NOTE | 2019-11-10 09:10 | XRAY ---
Indication: Chest pain. Comparison: June 25, 2017. Portable chest less inflated with now mild bilateral patchy interstitial alveolar opacities without consolidation/large effusion. Heart is not enlarged. Bony thorax intact again with sternotomy wires.
== END 2019-11-10 00:35 | disposition short-term general hospital (02) ==
LOC: ED 21:38
DX: I48.91 Unspecified atrial fibrillation (principal); R60.1 Generalized edema; R06.02 Shortness of breath; R07.9 Chest pain, unspecified
CPT/HCPCS: 36000; 36415; 71045; 80053; 81025; 82550; 83880; 84484; 85025; 93005; 96360; 96374; 96375; 99285; 99291; J1160; A9270-GY